=== PATIENT | male | born 1930 | race Caucasian/White ===

== ENCOUNTER 2017-03-18 16:56 | Inpatient (IN) | payer MEDICARE, MEDICAID ==
[~2017-03-18] VITALS: Ht 162.6 cm; Wt 78.7 kg
[~2017-03-18 16:56] MED LIST: AMIO200T2 PO; AMLO5TAB4 PO; ASPI-991 PO; ATOR40TA PO; CARV25TA2 PO; FURO-144 PO
--- NOTE | 2017-03-18 17:11 | NUR ---
IV ACCESS STARTED. BLOOD DRAWN. AT BS FOR EVAL. PT CAME IN WITH C/O SOB AND CHEST PAIN. FAMILY MEMBER AT BS FOR INFO. VSS. SAFETY AND COMFORT MEASURES PROVIDED. WILL MONITOR.
[2017-03-18 17:24] LABS: CALCIUM, SERUM 8.6 mg/dL (8.5-10.1); CARBON DIOXIDE 30 mmol/L (21-32); CHLORIDE 110 mmol/L (98-107); CREATININE 1.9 mg/dL (0.6-1.3); GLUCOSE 126 mg/dL (74-106); POTASSIUM 4.6 mmol/L (3.5-5.1); SODIUM SERUM 144 mmol/L (136-145); UREA NITROGEN, BLOOD 25 mg/dL (7-18)
[2017-03-18 17:26] LABS: BASOPHILS % (AUTO) 0.5 % (0.0-2.0); EOSINOPHILS # (AUTO) 0.1 /CMM (0.0-0.7); EOSINOPHILS % (AUTO) 1.2 % (0.0-6.0); HEMATOCRIT 42 % (39-51); HEMOGLOBIN 13.8 g/dL (13.5-17.5); INR 0.93 (0.87-1.13); LYMPHOCYTES # (AUTO) 2.9 /CMM (0.8-4.8); LYMPHOCYTES % (AUTO) 33.4 % (20.0-44.0); MEAN CORPUSCULAR HEMOGLOBIN 31 PG (26.0-33.0); MEAN CORPUSCULAR HGB CONC 33 g/dl (31.0-36.0); MEAN CORPUSCULAR VOLUME 96 fL (80-96); MONOCYTES # (AUTO) 0.8 /CMM (0.1-1.30); NEUTROPHILS # (AUTO) 4.8 /CMM (1.8-8.9); NEUTROPHILS % (AUTO) 55.9 % (43.0-81.0); PLATELET COUNT (AUTO) 185 /CMM (150-450); PROTHROMBIN TIME 9.7 SECS (9.5-12.7); RDW COEFFICIENT OF VARIATION 14.6 (11.5-15.0); RED BLOOD CELL COUNT(AUTO) 4.43 MIL/uL (4.5-6.0); WHITE BLOOD COUNT (AUTO) 8.6 K/uL (4.3-11.0)
[2017-03-18 17:40] LABS: TROPONIN I 0.028 ng/mL (0.00-0.056)
[2017-03-18 17:41] LABS: ALANINE AMINOTRANSFERASE 50 U/L (12-78); ALBUMIN 3.6 g/dL (3.4-5.0); ALKALINE PHOSPHATASE 102 U/L (46-116); ASPARTATE AMINOTRANSFERASE 27 U/L (15-37); B-TYPE NATRIURETIC PEPTIDE 2292 PG/ML (0-125); BILIRUBIN,DIRECT 0.1 mg/dL (0.0-0.2); BILIRUBIN,TOTAL 0.5 mg/dL (0.2-1.0); TOTAL PROTEIN, SERUM 7.9 g/dL (6.4-8.2)
[2017-03-18] MEDS ORDERED: FUROSEMIDE 40 MG/4 ML VIAL ONE (18:27)
[2017-03-18] MEDS ORDERED: ASPIRIN 81 MG TAB.CHEW ONE (18:27)
[2017-03-18] MEDS ORDERED: NITROGLYCERIN PACKET 1 GM PACKET ONE (18:27)
[2017-03-18] MEDS ORDERED: ASPIRIN 81 MG TAB.CHEW PO ONE (18:30)
[2017-03-18] MEDS ORDERED: NITROGLYCERIN PACKET 1 GM PACKET TOP ONE (18:30)
[2017-03-18] MEDS ORDERED: FUROSEMIDE 40 MG/4 ML VIAL IV ONE (18:30)
[2017-03-18] MEDS ORDERED: RIVA10TA PO (18:35)
--- NOTE | 2017-03-18 18:38 | NUR ---
FOOD TRAY CALLED PER PT REQUEST. PER MD PT IS OKAY TO EAT CARDIAC DIET FOOD.
--- NOTE | 2017-03-18 18:38 | NUR ---
PT MEDICATED ORDERED.
--- NOTE | 2017-03-18 18:46 | NUR ---
REPORT GIVEN TO CARMELA RAY FOR TELE ROOM [phone]
[2017-03-18] MEDS ORDERED: ACETAMINOPHEN 325 MG TABLET PO PRN (19:30)
[2017-03-18] MEDS ORDERED: hydrALAZINE HCL 25 MG TABLET PO PRN (19:30)
[2017-03-18] MEDS ORDERED: ONDANSETRON HCL/PF 4 MG/2 ML VIAL IVP PRN (19:30)
[2017-03-18] MEDS ORDERED: HYDROCODONE/APAP 5/325MG 1 EACH TABLET PO PRN (19:30)
[2017-03-18] MEDS ORDERED: ZOLPIDEM TARTRATE 5 MG TABLET PO PRN (19:30)
[2017-03-18] MEDS ORDERED: MAGNESIUM HYDROXIDE 30 ML UDC PO PRN (19:30)
[2017-03-18] MEDS ORDERED: Z GUARD REMEDY 2 OZ OINT TP PRN (19:30)
[2017-03-18] MEDS ORDERED: MAG HYDROX/AL HYDROX/SIMETH 30 ML UDC PO PRN (19:30)
[2017-03-18] MEDS ORDERED: MORPHINE SULFATE INJ 2 MG/ML DISP.SYRIN IV PRN (19:30)
--- NOTE | 2017-03-18 19:30 | NUR ---
TELE SALES AND SUPPORT CENTER AGENT INITIAL NOTES SEEN PT IN HIS ROOM AWAKE AND ALERT EATING HIS DINNER FOOD WITH HIS AT THE BEDSIDE. PT HAITIAN SPEAKING AND UNDERSTOOD CITIZEN OF [place]OO. DENIES ANY PAIN OR ANY DISCOMFORT NOTED. SKIN WARM AND DRY TO TOUCH NO SOB NOTED AT THIS TIME. APPLIED TELE MONITOR AND EXPLAINED WHAT THE PURPOSE OF IT AND PT UNDERSTOOD WELL . VITAL SIGNS FF BP 143/74, PULSE 81,RESP 20, TEMP 97.9 AND O2 SAT 97% IN ROOM AIR. KEPT HIM WARM AND COMFORTABLE AT ALL TIMES. ORIENTED HOW TO USE THE CALL LIGHT SYSTEM AND ENCOURAGE HIM TO USE IF HE NEEDS SOME HELP OR ASSISTANCE. TELE V-PACING HEART RATE 70 PER MONITOR. ASSESSMENT DONE AND RECORDED. WILL CONTINUE TO MONITOR. PLACE CALL LIGHT AT REACH.
[2017-03-18 19:45] VITALS: BP 143/74
[2017-03-18 20:00] VITALS: BP 143/74
[2017-03-18] MEDS: CARVEDILOL 12.5 MG TABLET PO SCH (20:24)
[2017-03-19] VITALS: BP 126/68
--- NOTE | 2017-03-19 | NUR ---
AUTOMOBILE UPHOLSTERER NOTES PT SLEEPING AT THIS TIME WITHOUT ANY SIGNS OF DISCOMFORT OR ANY ACUTE DISTRESS NOTED. TELE V-PACING . VITAL SIGNS WITHIN NORMAL LIMIT. KEPT HIM WARM AND COMFORTABLE AT ALL TIMES. WILL CONTINUE TO MONITOR. PLACE CALL LIGHT AT REACH.
[2017-03-19 04:00] VITALS: BP 137/76
--- NOTE | 2017-03-19 07:10 | NUR ---
TELE CLOSING NOTES PT REMAINS RESTING IN THE CHAIR WITHOUT ANY ACUTE DISTRESS NOTED. STABLE MYCHAL THE NIGHT AND ALL DUE MEDS GIVEN AND ALL NEEDS MET. ATE WELL , NO ASPIRATION NOTED. TELE V-PACING PER MONITOR. ENDORSE TO AM NURSE FOR CONTINUITY OF CARE. PLACE CALL LIGHT AT REACH.
--- NOTE | 2017-03-19 07:15 | NUR ---
PAPER SALES MANAGER OPENING NOTES RECEIVED PT FROM NIGHTSHIFT NURSE SITTING IN HIS CHAIR IN STABLE CONDITION. PT IS A.O X3. NO SOB OR SIGNS OF DISTRESS NOTED. BREATHING IS EVEN AND UNLABORED. PT DENIES ANY CHEST PAIN AT THIS TIME. HE IS V-PACING ON THE TELE MONITOR WITH A HR OF 70. IV PRESENT ON RIGHT AC 18G HL. IV IS PATENT AND INTACT. NO REDNESS OR SIGNS OF INFILTRATION NOTED. BED IN LOW LOCKED POSITION, SIDE RAILS UP X2, CALL LIGHT WITHIN REACH. WILL CONTINUE TO MONITOR.
[2017-03-19] MEDS: CARVEDILOL 12.5 MG TABLET PO SCH ×2 (08:28→18:32)
[2017-03-19] MEDS: ASPIRIN EC 81 MG TABLET.DR PO SCH (08:28)
[2017-03-19] MEDS: ATORVASTATIN 40 MG TABLET PO SCH (08:29)
[2017-03-19] MEDS: AMLODIPINE BESYLATE 5 MG TABLET PO SCH (08:29)
[2017-03-19] MEDS: AMIODARONE HCL 200 MG TABLET PO SCH (08:29)
[2017-03-19] MEDS: RIVAROXABAN 10 MG TABLET PO SCH (08:33)
[2017-03-19 08:37] LABS: BASOPHILS % (AUTO) 0.4 % (0.0-2.0); EOSINOPHILS # (AUTO) 0.1 /CMM (0.0-0.7); HEMATOCRIT 42 % (39-51); LYMPHOCYTES # (AUTO) 2.3 /CMM (0.8-4.8); LYMPHOCYTES % (AUTO) 29.9 % (20.0-44.0); MEAN CORPUSCULAR HEMOGLOBIN 32 PG (26.0-33.0); MEAN CORPUSCULAR HGB CONC 34 g/dl (31.0-36.0); MEAN CORPUSCULAR VOLUME 95 fL (80-96); MONOCYTES # (AUTO) 0.8 /CMM (0.1-1.30); MONOCYTES % (AUTO) 10.8 % (2.0-12.0); NEUTROPHILS # (AUTO) 4.3 /CMM (1.8-8.9); NEUTROPHILS % (AUTO) 56.9 % (43.0-81.0); PLATELET COUNT (AUTO) 182 /CMM (150-450); RDW COEFFICIENT OF VARIATION 14.6 (11.5-15.0); RED BLOOD CELL COUNT(AUTO) 4.39 MIL/uL (4.5-6.0); WHITE BLOOD COUNT (AUTO) 7.5 K/uL (4.3-11.0)
[2017-03-19] MEDS: NICOTINE PATCH (21MG) 21 MG PATCH.TD24 TD SCH (08:38)
[2017-03-19 08:56] LABS: CHOLESTEROL 230 mg/dL (<200); HDL CHOLESTEROL 50 mg/dL (40-60); LDL 152 mg/dL (0-99); TRIGLYCERIDES 162 mg/dL (30-150)
[2017-03-19 09:28] LABS: CARBON DIOXIDE 30 mmol/L (21-32); CHLORIDE 106 mmol/L (98-107); CREATININE 2.2 mg/dL (0.6-1.3); GLUCOSE 126 mg/dL (74-106); MAGNESIUM 1.8 mg/dL (1.8-2.4); PHOSPHORUS 3.7 mg/dL (2.5-4.9); POTASSIUM 4.2 mmol/L (3.5-5.1); SODIUM SERUM 145 mmol/L (136-145); UREA NITROGEN, BLOOD 30 mg/dL (7-18)
[2017-03-19 16:00] VITALS: BP 129/64
--- NOTE | 2017-03-19 18:45 | NUR ---
Met with patient, his primary dialect is Belizean but understand and speaks some Czech. Stated he lives locally with his family. He is ambulatory and independent with adl's. Has no DME or homehealth reported. Patient plan to return home , family will provide ride to home. Addendum: 03/19/17 at 2219 by MARIO DIANA RN Amended: Links added.
--- NOTE | 2017-03-19 18:59 | NUR ---
MS RN CLOSING NOTES PT REMAINS IN STABLE CONDITION. DENIES ANY CHEST PAIN AT THIS TIME. VITALS STABLE THROUGHOUT SHIFT. ALL NEEDS MET AND ORDERS CARRIED OUT ACCORDINGLY. ALL SAFETY MEASURES IN PLACE. WILL ENDORSE TO NIGHTSHIFT NURSE FOR DAVID
--- NOTE | 2017-03-19 19:30 | NUR ---
TELE/RN RECEIVE PATIENT AWAKE, ALERT, ORIENTED, WALKING IN THE HALLWAY, NO C/O PAIN, NO DISTRSS NOTED, WILL MONITOR.
[2017-03-19 20:00] VITALS: BP 122/68
[2017-03-20] VITALS: BP 125/70
--- NOTE | 2017-03-20 | NUR ---
MS/RN PATIENT IS SLEEPING, AROUSABLE, APPEAR COMFORTABLE, NO SIGNS OF DISTRESS NOTED, CALL LIGHT IN REACH. WILL CONTINUE TO MONITOR.
[2017-03-20 04:00] VITALS: BP 112/68
--- NOTE | 2017-03-20 05:00 | NUR ---
MS/RN PER LIBRARY CUSTOMER SERVICE CLERK, PATIENT REFUSED TO WEIGH.
--- NOTE | 2017-03-20 06:47 | NUR ---
MS/RN SITTING IN CHAIR APPEAR SLEEPING, APPEAR COMFORTABLE, NO DISTRESS NOTED, ALL NEEDS ATTENDED AT THIS TIME. WILL CONTINUE TO MONITOR.
--- NOTE | 2017-03-20 07:18 | NUR ---
MS RN OPENING NOTES RECEIVED PT FROM NIGHTSHIFT NURSE SITTING IN HIS CHAIR IN STABLE CONDITION. PT IS A/O X3. NO SOB OR SIGNS OF DISTRESS NOTED. BREATHING IS EVEN AND UNLABORED. PT DENIES ANY CHEST PAIN AT THIS TIME.IV PRESENT ON RIGHT AC 18G HL. IV IS PATENT AND INTACT. NO REDNESS OR SIGNS OF INFILTRATION NOTED. BED IN LOW LOCKED POSITION, SIDE RAILS UP X2, CALL LIGHT WITHIN REACH. WILL CONTINUE TO MONITOR.
--- NOTE | 2017-03-20 07:19 | NUR ---
MS RN NOTES PT REFUSED HIS DAILY WEIGHT PER NIGHTSHIFT NURSE. WILL REATTEMPT AT A LATER TIME
[2017-03-20 07:31] LABS: BASOPHILS % (AUTO) 0.6 % (0.0-2.0); EOSINOPHILS # (AUTO) 0.1 /CMM (0.0-0.7); EOSINOPHILS % (AUTO) 1.9 % (0.0-6.0); HEMATOCRIT 42 % (39-51); HEMOGLOBIN 14.1 g/dL (13.5-17.5); LYMPHOCYTES # (AUTO) 1.9 /CMM (0.8-4.8); LYMPHOCYTES % (AUTO) 24.2 % (20.0-44.0); MEAN CORPUSCULAR HEMOGLOBIN 32 PG (26.0-33.0); MEAN CORPUSCULAR HGB CONC 34 g/dl (31.0-36.0); MEAN CORPUSCULAR VOLUME 94 fL (80-96); MONOCYTES # (AUTO) 0.7 /CMM (0.1-1.30); MONOCYTES % (AUTO) 8.8 % (2.0-12.0); NEUTROPHILS % (AUTO) 64.5 % (43.0-81.0); PLATELET COUNT (AUTO) 165 /CMM (150-450); RDW COEFFICIENT OF VARIATION 14.5 (11.5-15.0); RED BLOOD CELL COUNT(AUTO) 4.42 MIL/uL (4.5-6.0); WHITE BLOOD COUNT (AUTO) 7.7 K/uL (4.3-11.0)
[2017-03-20 07:46] LABS: CALCIUM, SERUM 8.9 mg/dL (8.5-10.1); CARBON DIOXIDE 26 mmol/L (21-32); CHLORIDE 105 mmol/L (98-107); CREATININE 2.1 mg/dL (0.6-1.3); GLUCOSE 115 mg/dL (74-106); MAGNESIUM 2.1 mg/dL (1.8-2.4); PHOSPHORUS 4.3 mg/dL (2.5-4.9); POTASSIUM 4.1 mmol/L (3.5-5.1); SODIUM SERUM 140 mmol/L (136-145); UREA NITROGEN, BLOOD 41 mg/dL (7-18)
[2017-03-20 08:00] VITALS: BP_SYST 125; BP_SYST 130; BP_DIAS 65; BP_DIAS 73
[2017-03-20 08:28] VITALS: BP 130/65
[2017-03-20] MEDS: ASPIRIN EC 81 MG TABLET.DR PO SCH (08:28)
[2017-03-20] MEDS: AMLODIPINE BESYLATE 5 MG TABLET PO SCH (08:28)
[2017-03-20] MEDS: AMIODARONE HCL 200 MG TABLET PO SCH (08:28)
[2017-03-20] MEDS: ATORVASTATIN 40 MG TABLET PO SCH (08:28)
[2017-03-20] MEDS: CARVEDILOL 12.5 MG TABLET PO SCH (08:28)
[2017-03-20] MEDS: NICOTINE PATCH (21MG) 21 MG PATCH.TD24 TD SCH (08:28)
[2017-03-20] MEDS: RIVAROXABAN 10 MG TABLET PO SCH (08:31)
[2017-03-20 09:13] VITALS: BP 130/65
--- NOTE | 2017-03-20 14:46 | NUR ---
MS PHYSIOTHERAPY ASSISTANT NOTES PT WAS DISCHARGED FROM UNIT IN STABLE CONDITION. ALL NEEDS WERE MET DURING SHIFT AND ORDERS CARRIED OUT ACCORDINGLY. ALL DISCHARGE INSTRUCTIONS DISCUSSED WITH BOTH THE PATIENT AND HIS DAUGHTER JERRY. BOTH VERBALIZED FULL UNDERSTANDING OF DISCHARGE INSTRUCTIONS. PT LEFT WITH ALL BELONGINGS. ALL DISCHARGE PAPERWORK SIGNED BY PT. PT WAS ESCORTED BY MYSELF AND LEFT THE FACILITY SAFELY VIA PRIVATE VEHICLE DRIVEN BY HIS DAUGHTER.
== END 2017-03-20 14:45 | disposition home health service (06) | DRG 291 ==
LOC: ER 16:58 → TELE 19:02 → MED 03-20 03:34
PROVIDERS: ADMIT Internal Medicine; ATTEND Internal Medicine
DX: I13.0 Hypertensive heart and chronic kidney disease with heart failure and stage 1 through stage 4 chronic kidney disease, or unspecified chronic kidney disease (principal); I50.43 Acute on chronic combined systolic (congestive) and diastolic (congestive) heart failure; N17.9 Acute kidney failure, unspecified; I48.0 Paroxysmal atrial fibrillation; I35.0 Nonrheumatic aortic (valve) stenosis; J44.9 Chronic obstructive pulmonary disease, unspecified; I25.10 Atherosclerotic heart disease of native coronary artery without angina pectoris; N18.9 Chronic kidney disease, unspecified; E78.5 Hyperlipidemia, unspecified; F17.210 Nicotine dependence, cigarettes, uncomplicated; K21.9 Gastro-esophageal reflux disease without esophagitis; Z79.01 Long term (current) use of anticoagulants; Z91.19 Patient's noncompliance with other medical treatment and regimen; Z95.1 Presence of aortocoronary bypass graft; Z95.810 Presence of automatic (implantable) cardiac defibrillator
CPT/HCPCS: 36415; 71010-TC; 80048-TC; 80061-TC; 80076-TC; 83735-TC; 83880; 84100-TC; 84484-TC; 85025-TC; 85730-TC; 87081-TC; 93307-TC; A4606; J1940; Z7610

== ENCOUNTER 2017-06-09 05:09 | Inpatient (IN) | payer MEDICARE, MEDICAID ==
[~2017-06-09] VITALS: Ht 172.7 cm; Wt 78.5 kg
[2017-06-09] VITALS (26 sets, daily range): BP systolic 90–174; BP diastolic 44–91
[~2017-06-09 05:09] MED LIST changes: +ASPI-1152 PO; -ASPI-991 PO; +RIVA10TA PO
--- NOTE | 2017-06-09 05:11 | NUR ---
PT BRIB LAFD FROM HOME, C/O SOB ON CPAP FROM FIELD, IV 20G TO L AC FROM FIELD PATENT, PT A/O X 3, BREATHING TACHYPNIC 30, SAT 100% CONVERTED TO BI-PAP, BP 124/91, HR TACHICARDIC 101 PACED, SKIN WARM/DRY/INTACT,
[2017-06-09] MEDS ORDERED: NITROGLYCERIN PACKET 1 GM PACKET ONE (05:28)
[2017-06-09] MEDS ORDERED: FUROSEMIDE 40 MG/4 ML VIAL ONE (05:28)
[2017-06-09] MEDS ORDERED: ENALAPRILAT DIHYD. (2.5MG/ML) 1.25 MG/ML VIAL IV ONE ×2 (05:28→05:30)
[2017-06-09] MEDS ORDERED: FUROSEMIDE 40 MG/4 ML VIAL IV ONE (05:30)
[2017-06-09] MEDS ORDERED: ALBUTEROL FS 2.5 MG/3 ML VIAL.NEB NEB ONE (05:30)
[2017-06-09] MEDS ORDERED: NITROGLYCERIN PACKET 1 GM PACKET TD ONE (05:30)
--- NOTE | 2017-06-09 05:34 | NUR ---
PT REC'D ON CPAP MASK 15LPM. SOB AND RESP DISTRESS NOTED. PT PLACED ON BIPAP PER DR STAPLETON REQUEST. VENT PLUGGED INTO RED OUTLET, AMBU BAG BEDSIDE. ALARMS ARE SET AND AUDIBLE PER POLICY. WILL CONTINUE TO MONITOR. Addendum: 06/09/17 at 0535 by MALLORY MILNER RT Amended: Links added.
[2017-06-09 05:41] LABS: BASOPHILS # (AUTO) 0.1 /CMM (0.0-0.2); BASOPHILS % (AUTO) 1.1 % (0.0-2.0); EOSINOPHILS % (AUTO) 0.3 % (0.0-6.0); HEMATOCRIT 42 % (39-51); HEMOGLOBIN 14.6 g/dL (13.5-17.5); LYMPHOCYTES # (AUTO) 2.5 /CMM (0.8-4.8); LYMPHOCYTES % (AUTO) 19.4 % (20.0-44.0); MEAN CORPUSCULAR HEMOGLOBIN 33 PG (26.0-33.0); MEAN CORPUSCULAR HGB CONC 35 g/dl (31.0-36.0); MEAN CORPUSCULAR VOLUME 94 fL (80-96); MONOCYTES # (AUTO) 1.1 /CMM (0.1-1.30); MONOCYTES % (AUTO) 8.3 % (2.0-12.0); NEUTROPHILS # (AUTO) 9.1 /CMM (1.8-8.9); NEUTROPHILS % (AUTO) 70.9 % (43.0-81.0); PLATELET COUNT (AUTO) 153 /CMM (150-450); RDW COEFFICIENT OF VARIATION 13.8 (11.5-15.0); RED BLOOD CELL COUNT(AUTO) 4.48 MIL/uL (4.5-6.0); WHITE BLOOD COUNT (AUTO) 12.8 K/uL (4.3-11.0)
[2017-06-09 05:44] LABS: CALCIUM, SERUM 9.2 mg/dL (8.5-10.1); CARBON DIOXIDE 25 mmol/L (21-32); CHLORIDE 106 mmol/L (98-107); CREATININE 2.3 mg/dL (0.6-1.3); GLUCOSE 205 mg/dL (74-106); POTASSIUM 4.3 mmol/L (3.5-5.1); SODIUM SERUM 144 mmol/L (136-145); UREA NITROGEN, BLOOD 27 mg/dL (7-18)
[2017-06-09] MEDS ORDERED: ALBUTEROL FS 2.5 MG/3 ML VIAL.NEB ONE (05:49)
[2017-06-09 05:52] LABS: TROPONIN I 0.035 ng/mL (0.00-0.056)
[2017-06-09 05:56] LABS: ALANINE AMINOTRANSFERASE 27 U/L (12-78); ALBUMIN 3.9 g/dL (3.4-5.0); ALKALINE PHOSPHATASE 123 U/L (46-116); ASPARTATE AMINOTRANSFERASE 27 U/L (15-37); B-TYPE NATRIURETIC PEPTIDE 4455 PG/ML (0-125); BILIRUBIN,DIRECT 0.2 mg/dL (0.0-0.2); BILIRUBIN,TOTAL 1.3 mg/dL (0.2-1.0); TOTAL PROTEIN, SERUM 8.8 g/dL (6.4-8.2)
--- NOTE | 2017-06-09 06:00 | NUR ---
RT BEDSIDE FOR TX AT THIS TIME.
[2017-06-09 06:04] LABS: ABG BASE EXCESS -0.9 mmol/L; ABG OXYGEN SATURATION 97.2 % (92.0-98.5); ABG PCO2 36.5 mmHg (35.0-45.0); ABG PH 7.421 (7.350-7.450); ABG PO2 97.5 mmHg (75.0-100.0); AaDO2 145.7 mmHg; COHb 1.3 % (0.5-1.5); MetHb 0.4 % (0.0-1.5); O2Hb 95.5 % (94.0-97.0); SITE, ABG Right Radial; VENT MODE, BG Bipap 15/5 40% BR 14
--- NOTE | 2017-06-09 07:11 | NUR ---
REPORT TO GISELA RAY: PT SITTING IN BED, BI-PAP IN PLACE, NO C/O PAIN, PT UPDATED ON PLAN OF CARE
--- NOTE | 2017-06-09 07:15 | NUR ---
RECEIVED REPORT FOR DAVID, PATIENT ON BIPAP, TOLERATING WELL. WILL CONTINUE TO MONITOR.
--- NOTE | 2017-06-09 07:25 | NUR ---
RT COMPLETED ABG, WNL. RT RECOMMENDING TRIAL OFF BIPAP. BIPAP REMOVED, PLACED ON SIMPLE MASK, 10L. TOLERATING WELL. WILL CONTINUE TO MONITOR.
[2017-06-09] MEDS ORDERED: ZOLPIDEM TARTRATE 5 MG TABLET PO PRN (07:30)
[2017-06-09] MEDS ORDERED: HYDROCODONE/APAP 5/325MG 1 EACH TABLET PO PRN (07:30)
[2017-06-09] MEDS ORDERED: ONDANSETRON HCL/PF 4 MG/2 ML VIAL IVP PRN (07:30)
[2017-06-09] MEDS ORDERED: MAGNESIUM HYDROXIDE 30 ML UDC PO PRN (07:30)
[2017-06-09] MEDS ORDERED: DEXTROSE 50%-WATER 50 ML DISP.SYRIN IV PRN (07:30)
[2017-06-09] MEDS ORDERED: Z GUARD REMEDY 2 OZ OINT TP PRN (07:30)
--- NOTE | 2017-06-09 08:12 | NUR ---
PATIENT MORE SHORT OF BREATH AND TACHYCARDIC, NOT TOLERATING SIMPLE MASK. PLACED BACK ONTO BIPAP. WILL CONTINUE TO MONITOR.
--- NOTE | 2017-06-09 10:03 | NUR ---
REPORT GIVEN TO PETE RAY FOR DAVID UPON ADMISSION.
--- NOTE | 2017-06-09 10:25 | NUR ---
PATIENT TRANSPORTED TO [facility] VIA ACLS PROTOCOL. RNPETE TO PROVIDE DAVID.
[2017-06-09] MEDS: CARVEDILOL 12.5 MG TABLET PO SCH ×3 (10:30→21:00)
[2017-06-09] MEDS: ASPIRIN EC 81 MG TABLET.DR PO SCH ×2 (10:30→10:52)
[2017-06-09] MEDS: AMIODARONE HCL 200 MG TABLET PO SCH ×2 (10:30→10:52)
[2017-06-09] MEDS: ATORVASTATIN 40 MG TABLET PO SCH ×2 (10:30→10:52)
[2017-06-09] MEDS: AMLODIPINE BESYLATE 5 MG TABLET PO SCH ×2 (10:30→10:53)
--- NOTE | 2017-06-09 10:30 | NUR ---
RN INITIAL NOTES RECEIVED PT AWAKE, A/O X 1 WITH CONFUSION. PLACED COMFORTABLY TO BED AND CONNECTED TO MONITOR. ON BIPAP. PT AGITATED, TRYING TO GET OUT OF BED AND HITTING/KICKING STAFF. PT FALL RISK. ORDERED BILATERAL WRIST RESTRAINTS. PT TACHYPNEIC, RR 40S AND TACHYCARDIC, HR 130S. IV LINES IN PLACE. FC INSERTED. BODY ASSESSMENT DONE, PICTURES TAKEN AND PLACED IN THE CHART. DR. LY AWARE OF ADMISSION. AWAITING FOR ADMISSION ORDERS. WILL CLOSELY MONITOR.
--- NOTE | 2017-06-09 11:33 | NUR ---
RN NOTES DR. LY IN THE UNIT. AWARE OF PT'S ADMISSION AND AWARE OF CURRENT LAB VALUES AND CXR RESULT. PT ON BIPAP. ON BILATERAL WRSIT RESTRAINTS. PT VERY AGITATED. TRYING TO GET OUT OF BED, HITTING/KICKING STAFF. ORDERED ATICAN 0.5MG IVP X 1. NOTED AND CARRIED OUT. DAUGHTER AT BEDSIDE AWARE.
[2017-06-09] MEDS: BLOOD SUGAR DIAGNOSTIC 1 EACH STRIP IN SCH ×2 (11:45→17:26)
[2017-06-09] MEDS ORDERED: LORAZEPAM INJ 2 MG/ML VIAL IV ONE (12:00)
[2017-06-09] MEDS ORDERED: Z GUARD REMEDY 4 OZ OINT TP PRN (13:00)
--- NOTE | 2017-06-09 13:00 | NUR ---
RN NOTES SEEN AND EXAMINED BY DR. PATRICK. AWARE OF CURRENT LAB VALUES AND CXR RESULT. AWAITING FOR ORDERS.
[2017-06-09] MEDS: FUROSEMIDE 40 MG/4 ML VIAL IV SCH ×3 (14:02→23:02)
--- NOTE | 2017-06-09 14:30 | NUR ---
RN NOTES SEEN AND EXAMINED BY DR. BO. PT ON BIPAP. AWARE OF LATEST ABG RESULT. NO RESPIRATORY DISTRESS NOTED AT THIS TIME. NO SOB NOTED. WILL CONTINUE TO MONITOR.
[2017-06-09 14:42] LABS: ABG BASE EXCESS 1.4 mmol/L; ABG OXYGEN SATURATION 97.7 % (92.0-98.5); ABG PCO2 38.6 mmHg (35.0-45.0); ABG PH 7.438 (7.350-7.450); ABG PO2 117.2 mmHg (75.0-100.0); AaDO2 195.9 mmHg; COHb 0.1 % (0.5-1.5); MetHb 0.4 % (0.0-1.5); O2Hb 97.2 % (94.0-97.0); PEEP,BG 5 cm H2O; SITE, ABG Right Radial; VENT MODE, BG ST 15/5 RR 14 50%
[2017-06-09] MEDS: IPRATROPIUM NEB FS 0.5 MG/2.5 ML AMPUL.NEB NEB SCH ×2 (14:49→19:09)
[2017-06-09] MEDS: RIVAROXABAN 15 MG TABLET PO SCH (16:49)
--- NOTE | 2017-06-09 16:50 | NUR ---
RN NOTES PT UNABLE TO SWALLOW. RISK FOR ASPIRATION. PT ON NPO. MED NOT GIVEN. DR. LY NOTIFIED.
[2017-06-09] MEDS: INSULIN REGULAR, HUMAN 100 UNIT/ML 3 ML VIAL SQ PRN (17:28)
--- NOTE | 2017-06-09 18:06 | NUR ---
RT NOTE PT REMAINS ON BIPAP. SETTINGS PRESCRIBED. ALARMS SET PER PROTOCOL AND AUDIBLE. BIPAP PLUGGED IN TO RED OUTLET. NO DISTRESS NOTED WILL CONTINUE TO MONITOR. Addendum: 06/09/17 at 1807 by YOLI PAGE RT Amended: Links added.
--- NOTE | 2017-06-09 18:29 | NUR ---
RN CLOSING NOTES PT ON BIPAP. NO RESPIRATORY DISTRESS NOTED. NO SOB NOTED. HOB KEPT ELEVATED. NO SIGNS OF PAIN NOTED. IV LINES IN PLACE. FC IN PLACE. ADEQUATE OUTPUT NOTED. NO HEMATURIA NOTED. BLE ELEVATED. KEPT CLEAN AND DRY. REPOSITIONED Q2. WILL ENDORSE FOR CONTINUITY OF CARE.
--- NOTE | 2017-06-09 19:25 | NUR ---
RN NOTES RECEIVED PT ASLEEP RESTING WELL ON BIPAP 14/5 FIO2 40% SATING 97% AOX1. NO RESP DISTRESS. TELE MONITOR REVEALS V-PACING HR 74 PT IS WARMTH TO TOUCH, AFEBRILE. WITH IV SITE ON RAC G 18 AND LAC G18 INTACT AND PATENT. WITH GOOD CATH DRAINED WITH YELLOW CLEAR COLOR URINE OUTPUT. KEPT PT CLEAN AND DRY. WILL CLOSELY MONITOR.
--- NOTE | 2017-06-09 21:25 | NUR ---
RN NOTES CALLED AND SPOKE WITH DR. LOONEY INFORMED THAT BP 101/49 MMHG HR 76 AND PT IS DUE FOR COREG 25 MG AND LASIX 40 MG PER MD TO HOLD LASIX AND COREG FOR NOW. ACKNOWLEDGE ORDER.
--- NOTE | 2017-06-09 22:55 | NUR ---
RN NOTES PT AWAKE AND TRIED TO WEAN OFF FROM BIPAP, RT PLACED PT TO MASK @ 10LPM AFTER 10 MINUTES NOTED PT STILL SOUNDS CONGESTED AND STARTED TO GET RESTLESS. CALLED AND SPOKE TO DR. LOONEY WITH ORDER TO GIVE BACK THE LASIX 40 MG IVP THAT WAS HELD EARLIER NOTED AND ACKNOWLEDGE ORDER.
--- NOTE | 2017-06-09 23:40 | NUR ---
RN NOTES PT IS RESTLESS SATURATION IS DROPPING DOWN TO 85%. RT AT BEDSIDE ABG RENDERED
[2017-06-09 23:54] LABS: MetHb 0.4 % (0.0-1.5); PEEP,BG 5 cm H2O; SITE, ABG Right Radial
[2017-06-10] VITALS (51 sets, daily range): BP systolic 74–177; BP diastolic 45–88
--- NOTE | 2017-06-10 | NUR ---
RN NOTES ABG RESULT REPORTED TO DR. MORALES WITH PH 7.174 PCO2 72.8 PO2 60.2 HCO3 26.2 WITH ORDER TO INTUBATE PATIENT. NOTED AND ACKNOWLEDGE ORDER
[2017-06-10] MEDS ORDERED: PROPOFOL 100 ML ONE ×2 (00:20→06:53)
[2017-06-10] MEDS: PROPOFOL 100 ML IV PRN ×2 (00:24→06:55)
[2017-06-10] MEDS: BLOOD SUGAR DIAGNOSTIC 1 EACH STRIP IN SCH ×4 (00:40→17:32)
--- NOTE | 2017-06-10 00:40 | NUR ---
RN NOTES 0010 AM - ER MD CAME AND ORDER TO GIVE ETOMIDATE 30 MG AND ROCURONIUM 80 MG GIVEN BY CHARGE NURSE. 00:14 AM - INTUBATED PT BY ER MD 7.5 ETT SECURED @ 23 CM AL, PT TOLERATED WELL. 00:20 AM - CXR DONE
[2017-06-10] MEDS: INSULIN REGULAR, HUMAN 100 UNIT/ML 3 ML VIAL SQ PRN ×2 (00:43→05:31)
--- NOTE | 2017-06-10 00:51 | NUR ---
RN NOTES BS 151 MG/DL INSULIN NOT GIVEN DUE TO NPO AT THIS TIME
[2017-06-10] MEDS: IPRATROPIUM NEB FS 0.5 MG/2.5 ML AMPUL.NEB NEB SCH ×4 (00:56→19:52)
[2017-06-10 01:22] LABS: ABG OXYGEN SATURATION 98.8 % (92.0-98.5); ABG PCO2 39.2 mmHg (35.0-45.0); ABG PH 7.334 (7.350-7.450); ABG PO2 214.1 mmHg (75.0-100.0); AaDO2 459.7 mmHg; COHb 0.1 % (0.5-1.5); O2Hb 98.3 % (94.0-97.0); VENT MODE, BG AC 20 500 100% +5
--- NOTE | 2017-06-10 01:43 | NUR ---
PT INTUBATED AT 0014 WITH 7.5 ETT PROPERLY SECURED AT 23 CM AL. B/S EQUAL BILAT. PLACED ON VENT ON NOTED SETTINGS. NO DISTRESS NOTED POST INTUBATION. WILL CONT. TO MONITOR PT AND FOLLOW ORDERS ACCORDINGLY. Addendum: 06/10/17 at 0147 by JAMIE ORNELAS RT Amended: Links added.
[2017-06-10 05:19] LABS: HEMATOCRIT 42 % (39-51); HEMOGLOBIN 14.3 g/dL (13.5-17.5); LYMPHOCYTES # (AUTO) 0.5 /CMM (0.8-4.8); LYMPHOCYTES % (AUTO) 4.2 % (20.0-44.0); MEAN CORPUSCULAR HEMOGLOBIN 33 PG (26.0-33.0); MEAN CORPUSCULAR HGB CONC 34 g/dl (31.0-36.0); MEAN CORPUSCULAR VOLUME 96 fL (80-96); MONOCYTES % (AUTO) 8.7 % (2.0-12.0); NEUTROPHILS # (AUTO) 9.8 /CMM (1.8-8.9); NEUTROPHILS % (AUTO) 87.1 % (43.0-81.0); PLATELET COUNT (AUTO) 129 /CMM (150-450); RDW COEFFICIENT OF VARIATION 14.5 (11.5-15.0); RED BLOOD CELL COUNT(AUTO) 4.39 MIL/uL (4.5-6.0); WHITE BLOOD COUNT (AUTO) 11.2 K/uL (4.3-11.0)
[2017-06-10] MEDS: FUROSEMIDE 40 MG/4 ML VIAL IV SCH (05:24)
[2017-06-10 05:29] LABS: CALCIUM, SERUM 8.6 mg/dL (8.5-10.1); CARBON DIOXIDE 23 mmol/L (21-32); CHLORIDE 106 mmol/L (98-107); CREATININE 3.2 mg/dL (0.6-1.3); GLUCOSE 149 mg/dL (74-106); MAGNESIUM 2.2 mg/dL (1.8-2.4); PHOSPHORUS 5.4 mg/dL (2.5-4.9); POTASSIUM 4.3 mmol/L (3.5-5.1); SODIUM SERUM 144 mmol/L (136-145); UREA NITROGEN, BLOOD 44 mg/dL (7-18)
--- NOTE | 2017-06-10 07:00 | NUR ---
RN NOTES PT STILL SEDATED WITH PROPOFOL @ 15 MCG/KG/MIN. TOLERATED WELL. PT VS STABLE AT THIS TIME. AFEBRILE. KEPT PT CLEAN AND DRY. GRAND DAUGHTER LORIE MADE AWARE REGARDING INTUBATION. KEPT PT CLEAN AND DRY. WILL CONTINUE TO MONITOR.
--- NOTE | 2017-06-10 07:10 | NUR ---
RN INITIAL NOTES PT INTUBATED, TOLERATING VENT. NO RESPIRATORY DISTRESS NOTED. NO SOB NOTED. NO SIGNS OF PAIN NOTED. IV LINES IN PLACE. ON DIPRIVAN AT 15MCG/KG/MIN. WILL TITRATE ACCORDINGLY. FC IN PLACE. NO HEMATURIA NOTED. BLE ELEVATED. PT CLEAN AND DRY. WILL MONITOR.
[2017-06-10] MEDS: ATORVASTATIN 40 MG TABLET PO SCH (08:34)
[2017-06-10] MEDS: CARVEDILOL 12.5 MG TABLET PO SCH ×2 (08:35→21:48)
[2017-06-10] MEDS: ASPIRIN EC 81 MG TABLET.DR PO SCH (08:35)
[2017-06-10] MEDS: AMIODARONE HCL 200 MG TABLET PO SCH (08:36)
[2017-06-10] MEDS: AMLODIPINE BESYLATE 5 MG TABLET PO SCH (08:36)
--- NOTE | 2017-06-10 08:46 | NUR ---
WOUND CARE CONSULT PATIENT SEEN AND SKIN INTEGRITY ASSESSMENT DONE. SEE SANDFILL OPERATOR ASSESSMENT IN PCS FOR TODAY ALONG WITH ALL RECOMMENDATIONS. PATIENT ON ISOFLEX MEGAN SPECIALTY BED, CONTINUE TURNING SCHED Q 2 HOURS AND BILATERAL HEEL FLOATING, CONTINUE USE OF Z GUARD CURRENTLY ORDERED. PATIENT WITH CURRENT JOSE JUAN AT 13, SEDATED ON DIPROVAN, MOVING ALL EXTREMITIES WHEN TOUCHED. CONTINUE ALL PRESSURE ULCER PREVENTION MEASURES PER CURRENT PLAN OF CARE. Addendum: 06/10/17 at 0849 by TOMEKA JACKSON WNDNU Amended: Links added.
[2017-06-10 08:48] LABS: ABG BASE EXCESS -1.5 mmol/L; ABG OXYGEN SATURATION 96.4 % (92.0-98.5); ABG PCO2 33.1 mmHg (35.0-45.0); ABG PH 7.439 (7.350-7.450); ABG PO2 84.7 mmHg (75.0-100.0); AaDO2 162.4 mmHg; COHb 0.4 % (0.5-1.5); MetHb 0.1 % (0.0-1.5); O2Hb 95.9 % (94.0-97.0); SITE, ABG Right Radial; VENT MODE, BG AC 20 500 40 +5
--- NOTE | 2017-06-10 09:30 | NUR ---
RN NOTES SEEN AND EXAMINED BY DR. BO. PT INTUBATED, TOLERATING VENT WELL. CURRENTLY ON SEDATION VACATION. PT TRIES TO OPEN EYES BUT NOT FOLLOWING COMMANDS. AWARE OF CURRENT LAB VALUES AND CXR RESULT. NO ORDER MADE AT THIS TIME. WILL MONITOR.
[2017-06-10] MEDS: PROPOFOL 10MG/ML 50ML 50 ML IV PRN ×2 (12:25→18:51)
[2017-06-10] MEDS ORDERED: ETOMIDATE 2 MG/ML VIAL IV ONE (12:32)
[2017-06-10] MEDS ORDERED: ROCURONIUM BROMIDE 50 MG/5 ML IV ONE (12:32)
[2017-06-10] MEDS ORDERED: FEE EMEERGENCY 1 MIN EA MC ONE (12:32)
[2017-06-10] MEDS: ACETAMINOPHEN 325 MG TABLET PO PRN (12:47)
--- NOTE | 2017-06-10 14:51 | NUR ---
RN NOTES SEEN AND EXAMINED BY DR. LY. AWARE OF CURRENT LAB VALUES: WBC 11.2, FEBRILE. GIVEN TYLENOL. BUN 44, CREA 3.2. AWAITING BLOOD CULTURE RESULT. MD ALSO AWARE OF CXR RESULT. PT INTUBATED, TOLERATING VENT WELL. ON DIPRIVAN AT 5MCG/KG/MIN. MD DISCUSSED PLAN OF CARE WITH FAMILY MEMBERS AT BEDSIDE. WILL CONTINUE TO MONITOR. Addendum: 06/10/17 at 1540 by PETE AGUIRRE RN [id number] DR. LY ALSO AWARE THAT SBP ON LOW 90S, MAP >60. MD STATED LONG MAP IS >60, DO NOT START PT ON ANY PRESSORS. WILL CLOSELY MONITOR.
[2017-06-10] MEDS: methylPREDNISolone SOD SUCC 125 MG/2ML VIAL IV SCH ×2 (15:44→20:57)
[2017-06-10 15:53] LABS: APPEARANCE,URINE CLEAR (CLEAR); BILIRUBIN,URINE NEGATIVE (NEGATIVE); BLOOD, URINE 3+ Ery/uL (NEGATIVE); COLOR,URINE YELLOW (YELLOW); KETONES,URINE NEGATIVE (NEGATIVE); LEUKOCYTE ESTERASE ,URINE NEGATIVE (NEGATIVE); NITRITE, URINE NEGATIVE (NEGATIVE); PH,URINE 5.5 (5.0-8.0); PROTEIN,URINE TRACE mg/dl (NEGATIVE); UGLUCOSE NEGATIVE (NEGATIVE); UROBILINOGEN,URINE 0.2 EU/dL (0.2)
[2017-06-10 16:17] LABS: BACTERIA,URINE None seen /HPF (None Seen); RBC,URINE 21-50 /HPF (0-2); SQUAMOUS EPITHELIAL CELL,UR Rare /HPF (None Seen)
[2017-06-10] MEDS: RIVAROXABAN 15 MG TABLET PO SCH (17:21)
--- NOTE | 2017-06-10 18:42 | NUR ---
RN CLOSING NOTES PT INTUBATED, TOLERATING VENT. NO RESPIRATORY DISTRESS NOTED. NO SOB NOTED. NO SIGNS OF PAIN NOTED. IV LINES IN PLACE. ON DIPRIVAN 5MCG/KG/MIN. TITRATED ACCORDINGLY. FC IN PLACE. NO HEMATURIA NOTED. TX PROVIDED ORDERED. KEPT CLEAN AND DRY. REPOSITIONED Q2. BLE ELEVATED. KEPT PT CLEAN AND DRY. WILL ENDORSE FOR CONTINUITY OF CARE.
--- NOTE | 2017-06-10 19:30 | NUR ---
RN NOTES PT RESTING ON BED INTUBATED ETT7.5/ 25 CM @ LIP CONNECTED TO VENT. SETTING TOLERATED WELL NO RESPIRATORY DISTRESS NOTED. NO ACUTE RESP DISTRESS. NO SIGNS OF PAIN NOTED. IV LINES IN PLACE. RECEIVED WITH IV DIPRIVAN 5MCG/KG/MIN. ON LAC INTACT AND PATENT. FC DRAINED WITH YELLOW CLEAR COLOR URINE. NO HEMATURIA NOTED. NO SEDIMENT. REPOSITIONED COMFORTABLE. KEPT PT CLEAN AND DRY. OFFLOADED EXT WITH PILLOWS. WILL CLOSELY MONITOR.
[2017-06-11] VITALS (36 sets, daily range): BP systolic 90–130; BP diastolic 49–85
[2017-06-11] MEDS: BLOOD SUGAR DIAGNOSTIC 1 EACH STRIP IN SCH ×5 (00:22→23:35)
[2017-06-11] MEDS: INSULIN REGULAR, HUMAN 100 UNIT/ML 3 ML VIAL SQ PRN ×3 (00:25→23:37)
[2017-06-11] MEDS: IPRATROPIUM NEB FS 0.5 MG/2.5 ML AMPUL.NEB NEB SCH ×4 (01:43→19:53)
[2017-06-11] MEDS: methylPREDNISolone SOD SUCC 125 MG/2ML VIAL IV SCH ×3 (05:06→20:19)
[2017-06-11 05:23] LABS: BASOPHILS # (AUTO) 0.1 /CMM (0.0-0.2); BASOPHILS % (AUTO) 0.8 % (0.0-2.0); EOSINOPHILS % (AUTO) 0.1 % (0.0-6.0); HEMATOCRIT 38 % (39-51); HEMOGLOBIN 12.9 g/dL (13.5-17.5); LYMPHOCYTES # (AUTO) 0.7 /CMM (0.8-4.8); MEAN CORPUSCULAR HEMOGLOBIN 32 PG (26.0-33.0); MEAN CORPUSCULAR HGB CONC 34 g/dl (31.0-36.0); MEAN CORPUSCULAR VOLUME 94 fL (80-96); MONOCYTES # (AUTO) 0.3 /CMM (0.1-1.30); MONOCYTES % (AUTO) 3.8 % (2.0-12.0); NEUTROPHILS # (AUTO) 6.5 /CMM (1.8-8.9); NEUTROPHILS % (AUTO) 86.3 % (43.0-81.0); PLATELET COUNT (AUTO) 126 /CMM (150-450); RDW COEFFICIENT OF VARIATION 13.5 (11.5-15.0); RED BLOOD CELL COUNT(AUTO) 4.04 MIL/uL (4.5-6.0); WHITE BLOOD COUNT (AUTO) 7.6 K/uL (4.3-11.0)
[2017-06-11 05:30] LABS: CALCIUM, SERUM 8.7 mg/dL (8.5-10.1); CARBON DIOXIDE 23 mmol/L (21-32); CHLORIDE 107 mmol/L (98-107); GLUCOSE 174 mg/dL (74-106); POTASSIUM 4.3 mmol/L (3.5-5.1); SODIUM SERUM 143 mmol/L (136-145); UREA NITROGEN, BLOOD 79 mg/dL (7-18)
--- NOTE | 2017-06-11 06:05 | NUR ---
RT PT RECEIVED TRACHED NN [facility] VENT WITH NOTED SETTING. VENT PLUGGED IN TO RED OUTLET. ALARMS SET AND AUDIBLE. AMBU BAG AT HOB. NO SOB OR RESP DISTRESS NOTED ON SHIFT. HHN TX GIVEN ORDERED WITH NO ADVERSE REACTIONS. SX SMALL AMOUNT OF THICK YELLOW SECRETIONS PRN Addendum: 06/11/17 at 0605 by VIN REYNAGA RT Amended: Links added.
[2017-06-11] MEDS: PROPOFOL 10MG/ML 50ML 50 ML IV PRN ×3 (06:29→18:37)
--- NOTE | 2017-06-11 06:38 | NUR ---
RN NOTES PT REMAINED STABLE ON ETT WITH VENT SETTING TOLERATED WELL. NO ACUTE RESP DISTRESS SATING AT 97% . TELE MONITOR REVEALS V-PACING HR 78. PT REMAINED CALM WITH PROPOFOL DRIP @ 7 MCG/KG/MIN ON LAC. IV SITE REMAINED INTACT AND PATENT WELL RAC G 18. KEPT PT CLEAN AND DRY AND IN COMFORTABLE POSITION. OFFLOADED EXT WITH PILLOWS. REDUCED PRESSURE TO BONY PROMINENCE AREA. WILL ENDORSE CONTINUITY OF CARE TO AM NURSE.
--- NOTE | 2017-06-11 07:15 | NUR ---
CASINO BANKER- INITIAL NOTE RECEIVED PT INTUBATED & SEDATED. PT ORALLY INTUBATED 7.5, 25 CM @ THE LIP. PT SEDATED ON DIPRIVAN GTT AT 7 MCG/MIN. BEDSIDE MONITOR REVEALS V-PACING. OGT PRESENT & CLAMPED. GOOD CATHETER PRESENT & DRAINING TO GRAVITY. RAC 18G & LAC 18G IVS FLUSHED, PATENT & INTACT. SAFETY MEASURES TAKEN: BED LOCKED AND IN LOW POSITION, SIDE RAILS UP X2 AND BED ALARM ON, WILL CONTINUE TO MONITOR.
--- NOTE | 2017-06-11 07:55 | NUR ---
LOAN PROCESSING SUPERVISOR- DIPRIVAN GTT TURNED OFF FOR WEANING AND PLACED ON SIMV MODE BY RT. PT AWAKE & ABLE TO FOLLOW COMMANDS. 0915- ABGS DONE & RESULTS GIVEN TO DR. BO. PER , PLACE PT BACK ON AC MODE. DIPRIVAN RE-STARTED AT PREVIOUS RATE. PT PLACED ON AC MODE AT PREVIOUS SETTINGS PER RT. WILL CONTINUE TO MONITOR.
[2017-06-11] MEDS: AMLODIPINE BESYLATE 5 MG TABLET PO SCH (08:08)
[2017-06-11] MEDS: ATORVASTATIN 40 MG TABLET PO SCH (08:08)
[2017-06-11] MEDS: CARVEDILOL 12.5 MG TABLET PO SCH ×2 (08:08→20:19)
[2017-06-11] MEDS: ASPIRIN EC 81 MG TABLET.DR PO SCH (08:08)
[2017-06-11 09:08] LABS: ABG BASE EXCESS -3.6 mmol/L; ABG OXYGEN SATURATION 94.3 % (92.0-98.5); ABG PCO2 31.4 mmHg (35.0-45.0); ABG PH 7.418 (7.350-7.450); ABG PO2 75.4 mmHg (75.0-100.0); AaDO2 173.7 mmHg; COHb 0.3 % (0.5-1.5); MetHb 0.3 % (0.0-1.5); O2Hb 93.7 % (94.0-97.0); PEEP,BG 5 cm H2O; SITE, ABG Left Radial; VENT MODE, BG SIMV PS 15
[2017-06-11] MEDS: IV NS 0.9% 1,000 ML IV PRN (11:23)
[2017-06-11] MEDS: RIVAROXABAN 15 MG TABLET PO SCH (17:14)
--- NOTE | 2017-06-11 18:20 | NUR ---
RT END OF THE SHIFT REPORT, PT. 86 Y OLD MALE REMAIN ORALLY INTUBATED, ETT # 7.5 @ 23 CM LIPLINE REMAIN ON [facility]. VENT.WITH NOTED SETTINGS, ALARMS ARE SET AND FUNCTIONAL. EQUAL CHEST RISE NOTED, BILATERALLY RALES SUX'D FOR MINIMAL WHITE SECRETIONS. NO RESPIRATORY DISTRESS NOTED T/O DAY AND PT. REMAIN STABLE. TX'S GIVEN INLINE AND NO ADVERSE REACTION NOTED. NO CHANGES T/O SHIFT VENT PLUGGED INTO RED OUTLET. AMBU BAG AT THE BEDSIDE. CONTINUE FOR MONITOR AND REPORT WILL PASS TO PM SHIFT. Addendum: 06/11/17 at 1821 by SALTY JIMENEZ RT Amended: Links added.
--- NOTE | 2017-06-11 19:30 | NUR ---
RN INITIAL NOTES RECEIVED PATIENT RESTING IN BED, INTUBATED, ETT 7.5/25CM @ LIP, ON MECHANICAL VENTILATION AT PRESCRIBED SETTINGS, TOLERATING WELL, FREE FROM ANY S/S OF RESPIRATORY DISTRESS. PATIENT IS SEDATED ON DIPRIVAN, CURRENTLY @ 15MCG/KG/MIN. IV SITES PATENT AND INTACT, FLUSHED WITH NS, FREE FROM ANY S/S OF INFILTRATION OR PHLEBITIS. NO S/S OF PAIN OR ACUTE DISTRESS NOTED. FC PATENT AND INTACT, REPOSITIONED FOR COMFORT. BED IN LOWEST AND LOCKED POSITION. WILL CONTINUE TO CLOSELY MONITOR
--- NOTE | 2017-06-11 21:30 | NUR ---
RN NOTES - DIPRIVAN GTT DIPRIVAN DRIP TITRATED DOWN PER PROTOCOL, NOW AT 10MCG/KG/MIN. WILL CONTINUE TO CLOSELY MONITOR
--- NOTE | 2017-06-11 23:15 | NUR ---
RN NOTES - DIPRIVAN GTT DIPRIVAN DRIP TITRATED PER PROTOCOL, NOW AT 15MCG/KG/MIN. WILL CONTINUE TO CLOSELY MONITOR
[2017-06-12] VITALS (53 sets, daily range): BP systolic 64–144; BP diastolic 40–78
[2017-06-12] MEDS: PROPOFOL 10MG/ML 50ML 50 ML IV PRN ×3 (00:34→18:35)
[2017-06-12] MEDS: IPRATROPIUM NEB FS 0.5 MG/2.5 ML AMPUL.NEB NEB SCH ×4 (01:57→19:51)
--- NOTE | 2017-06-12 02:00 | NUR ---
RN NOTES - DIPRIVAN GTT DIPRIVAN DRIP TITRATED PER PROTOCOL, NOW AT 10MCG/KG/MIN. WILL CONTINUE TO CLOSELY MONITOR
[2017-06-12] MEDS: methylPREDNISolone SOD SUCC 125 MG/2ML VIAL IV SCH ×3 (04:59→21:10)
[2017-06-12] MEDS: BLOOD SUGAR DIAGNOSTIC 1 EACH STRIP IN SCH ×4 (05:00→23:34)
[2017-06-12] MEDS: IV NS 0.9% 1,000 ML IV PRN (05:17)
[2017-06-12] MEDS: INSULIN REGULAR, HUMAN 100 UNIT/ML 3 ML VIAL SQ PRN ×3 (05:19→23:35)
[2017-06-12 05:20] LABS: BASOPHILS % (AUTO) 0.3 % (0.0-2.0); EOSINOPHILS % (AUTO) 0.2 % (0.0-6.0); HEMATOCRIT 38 % (39-51); HEMOGLOBIN 13.1 g/dL (13.5-17.5); LYMPHOCYTES % (AUTO) 8.2 % (20.0-44.0); MEAN CORPUSCULAR HEMOGLOBIN 32 PG (26.0-33.0); MEAN CORPUSCULAR HGB CONC 35 g/dl (31.0-36.0); MEAN CORPUSCULAR VOLUME 93 fL (80-96); MONOCYTES # (AUTO) 0.8 /CMM (0.1-1.30); NEUTROPHILS # (AUTO) 10.9 /CMM (1.8-8.9); NEUTROPHILS % (AUTO) 85.3 % (43.0-81.0); PLATELET COUNT (AUTO) 128 /CMM (150-450); RDW COEFFICIENT OF VARIATION 13.5 (11.5-15.0); RED BLOOD CELL COUNT(AUTO) 4.05 MIL/uL (4.5-6.0); WHITE BLOOD COUNT (AUTO) 12.7 K/uL (4.3-11.0)
--- NOTE | 2017-06-12 05:40 | NUR ---
RT PT RECEIVED INTUBATE ON [facility] VENT WITH NOTED SETTING. ETT PATENT AND SECURE. VENT PLUGGED IN TO RED OUTLET. ALARMS SET AND AUDIBLE. AMBU BAG AT [facility]. NO SOB OR RESP DISTRESS NOTED ON SHIFT. SX SMALL AMOUNT OF THIN CLEAR SECRETIONS. Addendum: 06/12/17 at 0541 by VIN REYNAGA RT Amended: Links added.
[2017-06-12 05:44] LABS: CALCIUM, SERUM 8.5 mg/dL (8.5-10.1); CARBON DIOXIDE 24 mmol/L (21-32); CHLORIDE 110 mmol/L (98-107); CREATININE 3.6 mg/dL (0.6-1.3); GLUCOSE 179 mg/dL (74-106); SODIUM SERUM 146 mmol/L (136-145)
[2017-06-12 06:04] LABS: UREA NITROGEN, BLOOD 95 mg/dL (7-18)
--- NOTE | 2017-06-12 06:30 | NUR ---
RN CLOSING NOTES PATIENT REMAINS STABLE THROUGHOUT SHIFT, TOLERATING DIPRIVAN DRIP, CURRENTLY @ 5MCG/KG/MIN. WILL ENDORSE THE PATIENT TO THE AM SHIFT NURSE FOR DAVID
--- NOTE | 2017-06-12 07:30 | NUR ---
FIELD PARTY MANAGER NOTER PATIENT BECOME MORE AWAKE AND RESTLESS TRYING TO REMOVE ALL LINES ,DIPRIVAN INCRESED FROM 5 TO 10 MCG\MIN WILL MONITOR CLOSELY
--- NOTE | 2017-06-12 08:00 | NUR ---
RN INITIAL NOTES RECEIVED PATIENT RESTING IN BED, INTUBATED, ETT 7.5/25CM @ LIP, ON MECHANICAL VENTILATION AT PRESCRIBED SETTINGS, TOLERATING WELL, FREE FROM ANY S/S OF RESPIRATORY DISTRESS. PATIENT IS SEDATED ON DIPRIVAN, CURRENTLY @ 10MCG/KG/MIN. IV SITES PATENT AND INTACT, FLUSHED WITH NS, FREE FROM ANY S/S OF INFILTRATION OR PHLEBITIS. NO S/S OF PAIN OR ACUTE DISTRESS NOTED. FC PATENT AND INTACT, REPOSITIONED FOR COMFORT. BED IN LOWEST AND LOCKED POSITION. WILL CONTINUE TO CLOSELY MONITOR ON NPO ORDERED OG TUBE IN PLACE, PLACEMENT CHECKED BY AUSCULTATION, BED IN LOWEST AND LOCKED POSITION . PLAN OF CARE DISCUSSED WITH PATENT , ON SOFT RESTRAIN ORDERED WL CONT TO MONITOR CLOSELY, WITH GOOD CATH WITH YELLOW OPAL COLOR ILL CONT TO MONITOR CLOSELY
[2017-06-12 08:28] LABS: ABG OXYGEN SATURATION 93.9 % (92.0-98.5); ABG PCO2 34.8 mmHg (35.0-45.0); ABG PH 7.416 (7.350-7.450); ABG PO2 73.1 mmHg (75.0-100.0); AaDO2 172.1 mmHg; COHb 0.3 % (0.5-1.5); MetHb 0.3 % (0.0-1.5); O2Hb 93.3 % (94.0-97.0); PEEP,BG 5 cm H2O; SITE, ABG Right Radial; VENT MODE, BG AC 20 500 40%B +5; VT, ABG 500 mL
[2017-06-12] MEDS: ATORVASTATIN 40 MG TABLET PO SCH (08:29)
--- NOTE | 2017-06-12 08:30 | NUR ---
STABILIZER OPERATOR NOTE ON DIPRIVAN VOCATION AT THIS TIME , PATIENT OPEN HIS EYES AND BY CALLING HIS NAME , ALSO RESPONSE TO TACTILE STIMULI. SKIN WARM AND DRY , WILL CONT TO MONITOR CLOSELY ,
[2017-06-12] MEDS: CARVEDILOL 12.5 MG TABLET PO SCH ×2 (08:31→21:00)
[2017-06-12] MEDS: ASPIRIN EC 81 MG TABLET.DR PO SCH (08:31)
[2017-06-12] MEDS: AMLODIPINE BESYLATE 5 MG TABLET PO SCH (08:31)
--- NOTE | 2017-06-12 11:00 | NUR ---
MORTGAGE LOAN PROCESSING CLERK NOTE CONT ON DIPRIVAN 10 MCG\MIN ON IVF ORDERED, KEEP CLEAN DRY , REPOSITION Q 2 HOUR , WILL CONT TO MONITOR CLOSELY
--- NOTE | 2017-06-12 12:30 | NUR ---
[facility] NOTE UNABLE TO WEAN TO SIMV MODE , RR [address] BO WILL TRY TOMORROW
--- NOTE | 2017-06-12 15:41 | NUR ---
SHIP LABORER NOTE RT AT BEDSIDE, MOUTH CARE DONE OROPHARYNGEAL SUCTION DONE , CONT ON DIPRIVAN 15 MCG\MIN, NOT IN ACUTE DISTRESS, WILL CONT TO MONITOR CLOSELY
[2017-06-12] MEDS: RIVAROXABAN 15 MG TABLET PO SCH (16:27)
--- NOTE | 2017-06-12 16:39 | NUR ---
KNEE BOLTER NOTE T 99.4 COOLING MEASURE PROVIDED ,WILL CONT TO MONITOR CLOSELY
[2017-06-12] MEDS: ACETAMINOPHEN 325 MG TABLET PO PRN (17:43)
--- NOTE | 2017-06-12 18:00 | NUR ---
JAI ALAI PLAYER NOTE TYLENOL VIA OG GIVEN ,T 99.7 COOLING MEASURE PROVIDED .
--- NOTE | 2017-06-12 18:28 | NUR ---
PT TRACHED ON [facility] VENT WITH NOTED SETTING. VENT PLUGGED IN TO RED OUTLET. ALARMS SET AND AUDIBLE. AMBU BAG AT [facility]. NO SOB OR RESP DISTRESS NOTED ON SHIFT. HHN TX GIVEN ORDERED WITH NO ADVERSE REACTIONS. SX SMALL AMOUNT OF THICK YELLOW SECRETIONS PRN Addendum: 06/12/17 at 1829 by HAYLEY BROWNE RT Amended: Links added.
--- NOTE | 2017-06-12 18:29 | NUR ---
PUBLISHING MANAGER NOTE CONT ON DIPRIVAN 15 MCG\KG\MIN DUE TO RESTLESS BEFORE AND RR UP TO 32 WILL CONT TO MONITOR CLOSELY
--- NOTE | 2017-06-12 19:30 | NUR ---
Received patient sedated on Diprivan drip at mcg/kg/min still restless with bilateral soft wrist restraints on for safety.Patient intubated to vent on AC mode,SPO2 94%-95%.Afebrile.V-paced. OGT clamped.Placement verified.kept NPO. IVF infusing and site intact.FC to gravity draing clear yellow urine.Turned and repositioned.
--- NOTE | 2017-06-12 20:15 | NUR ---
Patient hypotensive SBP's 70's-60's called to with orders received.Called pharmacy for medication.Monitored closely.
[2017-06-12] MEDS ORDERED: NOREPINEPHRINE 8 MG in IV D5W 500 ML IV PRN (20:30)
--- NOTE | 2017-06-12 21:35 | NUR ---
Patient awake and restless.BP 135/73 Levophed Drip titrated off .Diprivan drip titrated as to sedation. Continue monitoring.
--- NOTE | 2017-06-12 22:15 | NUR ---
Levophed drip restarted and will titrate accordingly.BP 76/47
[2017-06-13] VITALS (91 sets, daily range): BP systolic 69–157; BP diastolic 44–92
[2017-06-13] MEDS: IV NS 0.9% 1,000 ML IV PRN (00:31)
[2017-06-13] MEDS: PROPOFOL 10MG/ML 50ML 50 ML IV PRN ×7 (00:32→23:28)
[2017-06-13] MEDS: IPRATROPIUM NEB FS 0.5 MG/2.5 ML AMPUL.NEB NEB SCH ×4 (02:12→19:56)
[2017-06-13] MEDS: methylPREDNISolone SOD SUCC 125 MG/2ML VIAL IV SCH ×3 (05:08→21:04)
[2017-06-13] MEDS: BLOOD SUGAR DIAGNOSTIC 1 EACH STRIP IN SCH ×3 (05:29→17:52)
[2017-06-13] MEDS: INSULIN REGULAR, HUMAN 100 UNIT/ML 3 ML VIAL SQ PRN ×3 (05:30→17:55)
[2017-06-13 06:00] LABS: EOSINOPHILS % (AUTO) 0.1 % (0.0-6.0); HEMATOCRIT 38 % (39-51); HEMOGLOBIN 12.9 g/dL (13.5-17.5); LYMPHOCYTES # (AUTO) 0.7 /CMM (0.8-4.8); LYMPHOCYTES % (AUTO) 6.6 % (20.0-44.0); MEAN CORPUSCULAR HEMOGLOBIN 32 PG (26.0-33.0); MEAN CORPUSCULAR HGB CONC 34 g/dl (31.0-36.0); MEAN CORPUSCULAR VOLUME 95 fL (80-96); MONOCYTES # (AUTO) 0.6 /CMM (0.1-1.30); MONOCYTES % (AUTO) 5.3 % (2.0-12.0); NEUTROPHILS # (AUTO) 9.5 /CMM (1.8-8.9); PLATELET COUNT (AUTO) 119 /CMM (150-450); RDW COEFFICIENT OF VARIATION 14.5 (11.5-15.0); RED BLOOD CELL COUNT(AUTO) 3.99 MIL/uL (4.5-6.0); WHITE BLOOD COUNT (AUTO) 10.8 K/uL (4.3-11.0)
[2017-06-13 06:15] LABS: CALCIUM, SERUM 8.4 mg/dL (8.5-10.1); CARBON DIOXIDE 23 mmol/L (21-32); CHLORIDE 112 mmol/L (98-107); CREATININE 3.2 mg/dL (0.6-1.3); GLUCOSE 174 mg/dL (74-106); POTASSIUM 3.8 mmol/L (3.5-5.1); SODIUM SERUM 149 mmol/L (136-145)
--- NOTE | 2017-06-13 06:15 | NUR ---
PT RECEIVED INTUBATED WITH ETT AND ON [facility] VENT WITH NOTED SETTING. VENT PLUGGED IN TO RED OUTLET. ALARMS SET AND AUDIBLE. AMBU BAG AT [facility]. NO SOB OR RESP DISTRESS NOTED ON SHIFT. HHN TX GIVEN ORDERED WITH NO ADVERSE REACTIONS. SX SMALL AMOUNT OF THICK YELLOW SECRETIONS PRN
[2017-06-13 06:16] LABS: UREA NITROGEN, BLOOD 104 mg/dL (7-18)
--- NOTE | 2017-06-13 06:35 | NUR ---
Patient remains sedated on Diprivan drip.BP very labile.Levophed drip titrated accordingly to keep MAP >65.BM x1 loose coffee ground stool.Perineal care done.Bathed and complete linens changed.Oral care done.Turned and repositioned.BS monitored coverage given per sliding scale. No acute distress noted.
--- NOTE | 2017-06-13 07:02 | NUR ---
SUPERVISOR EXTRUSION- INITIAL NOTE RECEIVED PT INTUBATED & SEDATED. PT ORALLY INTUBATED 7.5, 25 CM @ THE LIP. BEDSIDE MONITOR REVEALS V-PACING. OGT PRESENT & CLAMPED. GOOD CATHETER PRESENT & DRAINING TO GRAVITY. RAC 20G AND LEFT HAND 20G IVS FLUSHED, PATENT & INTACT, RUNNING DIPRIVAN GTT @ 30 MCG/MIN, NS @ 50 ML/HR AND LEVOPHED @ 1.5 MCG/MIN. SAFETY MEASURES TAKEN: BED LOCKED AND IN LOW POSITION, SIDE RAILS UP X2 AND BED ALARM ON, WILL CONTINUE TO MONITOR.
--- NOTE | 2017-06-13 07:25 | NUR ---
PT RECEIVED ON VENT SUPPORT VIA ET TUBE WITH PARAMETERS BELLOW SET PER ORDER: AC 20 VT 500 FIO2 40% PEEP 5 B/S CLEAR BILATERAL VENT IS PLUGGED INTO RED OUTLET WITH ALARMS ON AND FUNCTIONING. KAELYN @ BEDSIDE. Addendum: 06/13/17 at 0929 by SHARIFA WELSH RT Amended: Links added.
[2017-06-13] MEDS: CARVEDILOL 12.5 MG TABLET PO SCH ×2 (08:03→21:00)
[2017-06-13] MEDS: AMLODIPINE BESYLATE 5 MG TABLET PO SCH (08:04)
[2017-06-13] MEDS: ATORVASTATIN 40 MG TABLET PO SCH (08:45)
[2017-06-13] MEDS: ASPIRIN EC 81 MG TABLET.DR PO SCH (08:45)
--- NOTE | 2017-06-13 09:00 | NUR ---
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 PT PUT ON SIMV MODE BY RT. PT AWAKE & ALERT, ABLE TO FOLLOW COMMANDS. 1100- DR. PRINCE AT BEDSIDE. PER MD, PLACE PT ON CPAP MODE. PT AWAKE & ALERT, ABLE TO FOLLOW COMMANDS. NO RESPIRATORY DISTRESS NOTED. FAMILY AT BEDSIDE. 1315- PT DISPLAYING TACHYPNEA AND INCREASED RESPIRATORY EFFORT. PER DR. PRINCE, PLACE BACK ON AC MODE. DIPRIVAN RE-STARTED AT PREVIOUS RATE. FAMILY AT BEDSIDE AND UPDATED WITH PLAN OF CARE. WILL CONTINUE TO MONITOR.
--- NOTE | 2017-06-13 09:19 | NUR ---
WEANING TRIALS ORDERED: SIMV 4/ PS 15, FIO2 40%, PEEP +5 Addendum: 06/13/17 at 0920 by SHARIFA WELSH RT Amended: Links added.
[2017-06-13 09:55] LABS: BAND % (MANUAL) 9 % (0.0-5.0); LYMPHOCYTES % (MANUAL) 9 % (16-48); MONOCYTES % (MANUAL) 9 % (0-11.0); NEUTROPHILS % (MANUAL) 73 (42-76)
[2017-06-13 10:09] LABS: ABG OXYGEN SATURATION 94.6 % (92.0-98.5); ABG PCO2 31.8 mmHg (35.0-45.0); ABG PH 7.425 (7.350-7.450); ABG PO2 79.3 mmHg (75.0-100.0); AaDO2 169.3 mmHg; COHb 0.3 % (0.5-1.5); MetHb 0.3 % (0.0-1.5); PEEP,BG 5 cm H2O; SITE, ABG Left Brachial; VENT MODE, BG SIMV 4 / PS 15; VT, ABG 500 mL
--- NOTE | 2017-06-13 11:09 | NUR ---
CPAP 5 PS 12 FIO2 40% Addendum: 06/13/17 at 1109 by SHARIFA WELSH RT Amended: Links added.
[2017-06-13] MEDS: IV D5/0.45 NACL 1,000 ML IV PRN ×2 (11:50→23:29)
[2017-06-13 12:12] LABS: ABG BASE EXCESS -3.9 mmol/L; ABG OXYGEN SATURATION 94.5 % (92.0-98.5); ABG PCO2 31.7 mmHg (35.0-45.0); ABG PH 7.411 (7.350-7.450); ABG PO2 80.4 mmHg (75.0-100.0); AaDO2 168.3 mmHg; COHb 0.3 % (0.5-1.5); MetHb 0.3 % (0.0-1.5); O2Hb 93.9 % (94.0-97.0); SITE, ABG Right Brachial; VENT MODE, BG CPAP 5 / PS 12
--- NOTE | 2017-06-13 13:16 | NUR ---
BACK TO AC MODE DUE TO 36 RR. Addendum: 06/13/17 at 1317 by SHARIFA WELSH RT Amended: Links added.
[2017-06-13] MEDS: RIVAROXABAN 15 MG TABLET PO SCH (17:49)
--- NOTE | 2017-06-13 20:15 | NUR ---
ICU/FLAGMAN BLOOD PRESSURE IS LOW, IN THE 60'S TO 70'S. PT HAD LEVO TURNED OFF AT 1700 BY DAY CHARGE NURSE. WILL MONITOR THIS. CHARGE NURSE AWARE OF THE LOW BLOOD PRESSURE.
--- NOTE | 2017-06-13 20:35 | NUR ---
ICU/SAND SYSTEM OPERATOR LEVO 2 MCG STARTED DUE TO LOW BP, CHARGE NURSE AWARE AND STARTED THIS. WILL CONTINUE TO MONITOR THE BP.FAMILY AT BEDSIDE
--- NOTE | 2017-06-13 20:41 | NUR ---
PT RECEIVED INTUBATED ON VENT. NO RESP DISTRESS NOTED. PT TOLERATING VENT SETTINGS. SX'D FOR MOD AMT OF THICK PALE SECRETIONS. VENT ALARMS SET AND AUDIBLE. AMBU BAG AT BEDSIDE. WILL CONTINUE TO MONITOR. Addendum: 06/13/17 at 2042 by WILMA SEXTON RT Amended: Links added.
--- NOTE | 2017-06-13 20:45 | NUR ---
ICU/GRADUATE ENGINEER BLOOD PRESSURE CONTINUES TO BE LOW, CHARGE NURSE MADE AWARE OF THIS. INCREASED LEVO TO 4MCG FROM 2 BY CHARGE NURSE. WILL CONTINUE TO MONITOR THIS PT BP.
--- NOTE | 2017-06-13 21:00 | NUR ---
ICU/PILOT PT HAS LEVO GOING THROUGH PERIPHERAL LINE, CALLED MD FOR AN ORDER FOR CENTRAL LINE. GOT A ORDER THEN CALLED NURSING SUP TO CALL PIC PERSON
--- NOTE | 2017-06-13 22:20 | NUR ---
ICU/INSTRUCTIONAL MATERIALS DIRECTOR PICC LINE WAS PLACED ALL PERIPHERAL IV LINES MOVED TO THE CENTRAL LINE. WELL THE LEVO WILL MONITOR THIS PT'S BP
[2017-06-14] VITALS (69 sets, daily range): BP systolic 93–140; BP diastolic 52–77
--- NOTE | 2017-06-14 00:40 | NUR ---
ICU/TRANSFER MACHINE OPERATOR BLOOD SUGAR IS 242, THIS IS COVERED WITH SLIDING SCALE ORDERED BY MD. WILL CONTINUE TO MONITOR THIS PER MD ORDERERS.
[2017-06-14] MEDS: PROPOFOL 10MG/ML 50ML 50 ML IV PRN ×7 (01:22→22:51)
[2017-06-14] MEDS: BLOOD SUGAR DIAGNOSTIC 1 EACH STRIP IN SCH ×4 (01:22→18:04)
[2017-06-14] MEDS: IPRATROPIUM NEB FS 0.5 MG/2.5 ML AMPUL.NEB NEB SCH ×4 (01:25→19:38)
[2017-06-14] MEDS: INSULIN REGULAR, HUMAN 100 UNIT/ML 3 ML VIAL SQ PRN ×3 (01:29→11:44)
[2017-06-14] MEDS: methylPREDNISolone SOD SUCC 125 MG/2ML VIAL IV SCH ×3 (05:17→21:06)
--- NOTE | 2017-06-14 05:20 | NUR ---
ICU/FOOTWEAR SALES ASSOCIATE BLOOD SUGAR IS 220, THIS IS COVERED WITH SLIDING SCALE ORDERED BY MD. WILL CONTINUE TO MONITOR THIS PER MD ORDERERS.
[2017-06-14 05:28] LABS: BASOPHILS % (AUTO) 0.1 % (0.0-2.0); HEMATOCRIT 37 % (39-51); HEMOGLOBIN 12.5 g/dL (13.5-17.5); LYMPHOCYTES # (AUTO) 0.5 /CMM (0.8-4.8); MEAN CORPUSCULAR HEMOGLOBIN 33 PG (26.0-33.0); MEAN CORPUSCULAR HGB CONC 34 g/dl (31.0-36.0); MEAN CORPUSCULAR VOLUME 96 fL (80-96); MONOCYTES # (AUTO) 0.3 /CMM (0.1-1.30); MONOCYTES % (AUTO) 2.9 % (2.0-12.0); NEUTROPHILS # (AUTO) 9.2 /CMM (1.8-8.9); PLATELET COUNT (AUTO) 128 /CMM (150-450); RDW COEFFICIENT OF VARIATION 14.6 (11.5-15.0); RED BLOOD CELL COUNT(AUTO) 3.84 MIL/uL (4.5-6.0); WHITE BLOOD COUNT (AUTO) 10.1 K/uL (4.3-11.0)
[2017-06-14 05:54] LABS: CALCIUM, SERUM 8.1 mg/dL (8.5-10.1); CARBON DIOXIDE 24 mmol/L (21-32); CHLORIDE 113 mmol/L (98-107); CREATININE 2.8 mg/dL (0.6-1.3); GLUCOSE 276 mg/dL (74-106); POTASSIUM 3.6 mmol/L (3.5-5.1); SODIUM SERUM 147 mmol/L (136-145)
[2017-06-14 06:03] LABS: UREA NITROGEN, BLOOD 106 mg/dL (7-18)
--- NOTE | 2017-06-14 07:00 | NUR ---
SENIOR PROGRAM PLANNER- INITIAL NOTE RECEIVED PT INTUBATED & SEDATED. PT ORALLY INTUBATED 7.5, 25 CM @ THE LIP. BEDSIDE MONITOR REVEALS V-PACING. BILATERAL SOFT WRIST RESTRAINTS IN PLACE. OGT PRESENT & CLAMPED. GOOD CATHETER PRESENT & DRAINING TO GRAVITY. RAC 20G AND LEFT HAND 20G IVS FLUSHED, PATENT & INTACT. JERAMY PICC LINE RUNNING DIPRIVAN GTT @ 30 MCG/MIN, NS @ 50 ML/HR AND LEVOPHED @ 4 MCG/MIN. SAFETY MEASURES TAKEN: BED LOCKED AND IN LOW POSITION, SIDE RAILS UP X2 AND BED ALARM ON, WILL CONTINUE TO MONITOR.
--- NOTE | 2017-06-14 08:09 | NUR ---
RT PATIENT REC'D ORALLY INTUBATED ON [facility] VENT WITH SETTINGS TOLERATED WELL. VENT ALARMS CHECKED + AUDIBLE. CUFF PRESSURE CHECKED PARKS WORKER. SX'D WITH SMALL/MOD AMT PALE SEMITHICK SECRETIONS. B/S DIM. AMBU BAG AT [facility]. CONT CURRENT PLAN OF RESP CARE. Addendum: 06/14/17 at 0846 by KIRILL FABIAN RT Amended: Links added.
[2017-06-14] MEDS: ATORVASTATIN 40 MG TABLET PO SCH (08:18)
[2017-06-14] MEDS: ASPIRIN EC 81 MG TABLET.DR PO SCH (08:18)
[2017-06-14] MEDS: CARVEDILOL 12.5 MG TABLET PO SCH (08:24)
[2017-06-14] MEDS: AMLODIPINE BESYLATE 5 MG TABLET PO SCH (08:24)
--- NOTE | 2017-06-14 09:55 | NUR ---
LAMINATING MACHINE OPERATOR HELPER- DR. LY AT BEDSIDE. UPDATED MD ON THE FOLLOWING: PER PREVIOUS NURSE, PT HAD DARK BROWN SECRETIONS FROM NGT. MD AWARE AND STATES IT IS OK TO START PT ON NGT FEEDING (HEMOGLOBIN & HEMATOCRIT STABLE). WILL CONTINUE TO MONITOR CLOSELY. 1045- SPOKE TO SENIOR NATIONAL ACCOUNT MANAGER. RECOMMENDATIONS FOR NGT FEEDING IS GLYTROL. START AT 45 ML/HR, GOAL IS 75 ML/HR. ORDERS PLACED. WILL CONTINUE TO MONITOR.
[2017-06-14] MEDS: GLYTROL 1,000 ML BAG GT PRN (14:07)
[2017-06-14] MEDS: RIVAROXABAN 15 MG TABLET PO SCH (18:02)
[2017-06-14] MEDS ORDERED: DEXTROSE 50%-WATER 50 ML DISP.SYRIN IV PRN (18:30)
--- NOTE | 2017-06-14 19:45 | NUR ---
ICU/FLUOROSCOPE OPERATOR RECEIVED REPORT FROM DAY NURSE, PT IS SEDATION OF DEPRO AT 30 MCG, WITH RESTRAINTS IN PLACE. PT IS ORALLY INTUBATED, TOLERATING CURRENT VENT SETTINGS WITH SATURATION AT 100%. OG/TUBE FEEDING AT 65ML/ WITH 10 ML RESIDUALS.. GOOD CATH DRAINING YELLOW URINE. SKIN ISSUES ARE ADDRESSED ON FLOW SHEET. PT WAS TURNED AND REPOSITIONED FOR COMFORT AND CARE.
--- NOTE | 2017-06-14 21:16 | NUR ---
PT RECEIVED INTUBATED ON VENT. NO RESP DISTRESS NOTED. PT TOLERATING VENT SETTINGS. SX'D FOR MOD AMT OF THICK PALE SECRETIONS. VENT ALARMS SET AND AUDIBLE. AMBU BAG AT BEDSIDE. WILL CONTINUE TO MONITOR. Addendum: 06/14/17 at 2116 by WILMA SEXTON RT Amended: Links added.
[2017-06-14] MEDS: IV D5/0.45 NACL 1,000 ML IV PRN (21:21)
[2017-06-15] VITALS (34 sets, daily range): BP systolic 92–163; BP diastolic 51–84
[2017-06-15] MEDS: BLOOD SUGAR DIAGNOSTIC 1 EACH STRIP IN SCH ×5 (00:14→23:49)
[2017-06-15] MEDS: INSULIN REGULAR, HUMAN 100 UNIT/ML 3 ML VIAL SQ PRN ×5 (00:15→23:52)
--- NOTE | 2017-06-15 00:30 | NUR ---
ICU/CARTON LINER BLOOD SUGAR IS 282, THIS IS COVERED WITH SLIDING SCALE ORDERED BY MD. WILL CONTINUE TO MONITOR THIS PER MD ORDERERS.PT WAS TURNED AND REPOSITIONED FOR COMFORT AND CARE
[2017-06-15] MEDS: IPRATROPIUM NEB FS 0.5 MG/2.5 ML AMPUL.NEB NEB SCH ×4 (01:24→20:07)
--- NOTE | 2017-06-15 02:05 | NUR ---
ICU/BILINGUAL OPERATOR PT WAS GIVEN CARE AT THIS TIME ALONG WITH ORAL CARE. ALSO PICTURES OF ANY WOUNDS WERE TAKEN AND PLACED IN CHART PER [employer] [employer] ON WOUND MGNT. PT REMAINS ON CURRENT VENT SETTINGS TOLERATING THIS WELL. PT WAS TURNED AND REPOSITIONED FOR COMFORT AND CARE.
[2017-06-15] MEDS: PROPOFOL 10MG/ML 50ML 50 ML IV PRN ×7 (02:06→23:57)
--- NOTE | 2017-06-15 03:45 | NUR ---
ICU/LUBRICATING SPECIALIST PT HAS INCREASED RESIDUALS FROM O/G TUBE THAT WERE 85ML/HR. DECREASED THE FEEDING TO 45ML. WILL CONTINUE TO MONITOR THE RESIDUALS IN THE FEEDING.
[2017-06-15] MEDS: methylPREDNISolone SOD SUCC 125 MG/2ML VIAL IV SCH ×3 (04:55→21:14)
--- NOTE | 2017-06-15 06:09 | NUR ---
ICU/MOUNTER SOUSAPHONES BLOOD SUGAR IS 325, THIS IS COVERED WITH SLIDING SCALE ORDERED BY MD. WILL CONTINUE TO MONITOR THIS PER MD ORDERERS.PT WAS TURNED AND REPOSITIONED FOR COMFORT AND CARE. NO ACUTE DISTRESS SEEN AT THIS TIME.
--- NOTE | 2017-06-15 07:02 | NUR ---
SUBSTITUTE TEACHER- INITIAL NOTE RECEIVED PT INTUBATED & SEDATED. PT ORALLY INTUBATED 7.5, 25 CM @ THE LIP. BEDSIDE MONITOR REVEALS V-PACING. BILATERAL SOFT WRIST RESTRAINTS IN PLACE. OGT PRESENT RUNNING GLYTROL @ 45 ML/HR. GOOD CATHETER PRESENT & DRAINING TO GRAVITY. RAC 20G AND LEFT HAND 20G IVS FLUSHED, PATENT & INTACT. JERAMY PICC LINE RUNNING DIPRIVAN GTT @ 30 MCG/MIN AND NS @ 50 ML/HR. SAFETY MEASURES TAKEN: BED LOCKED AND IN LOW POSITION, SIDE RAILS UP X2 AND BED ALARM ON, WILL CONTINUE TO MONITOR.
[2017-06-15] MEDS: ASPIRIN EC 81 MG TABLET.DR PO SCH (08:15)
[2017-06-15] MEDS: ATORVASTATIN 40 MG TABLET PO SCH (08:15)
--- NOTE | 2017-06-15 09:00 | NUR ---
E BUSINESS MANAGER- SEDATION VACATION COMPLETED. PT AWAKE, ABLE TO OPEN EYES AND FOLLOW SIMPLE COMMANDS. AFTER 15 MINS, DIPRIVAN RE-STARTED AT PREVIOUS RATE PER PROTOCOL. WILL CONTINUE TO MONITOR. Addendum: 06/15/17 at 1937 by PETER JUARES RN DIPRIVAN RE-STARTED DUE TO PT BEING TACHYPNEIC, RESPIRATIONS 30-35S AND TACHYCARDIA.
--- NOTE | 2017-06-15 09:18 | NUR ---
SERVICER- DR. BO AT BEDSIDE. UPDATED MD ON PT'S CONDITION. PER MD, NO PLANS FOR WEANING TODAY. WILL RE-ASSESS WEANING TRIALS TOMORROW. WILL CONTINUE TO MONITOR.
[2017-06-15 09:38] LABS: BASOPHILS % (AUTO) 0.1 % (0.0-2.0); HEMATOCRIT 33 % (39-51); HEMOGLOBIN 11.4 g/dL (13.5-17.5); LYMPHOCYTES # (AUTO) 0.4 /CMM (0.8-4.8); LYMPHOCYTES % (AUTO) 3.9 % (20.0-44.0); MEAN CORPUSCULAR HEMOGLOBIN 33 PG (26.0-33.0); MEAN CORPUSCULAR HGB CONC 34 g/dl (31.0-36.0); MEAN CORPUSCULAR VOLUME 96 fL (80-96); MONOCYTES # (AUTO) 0.3 /CMM (0.1-1.30); MONOCYTES % (AUTO) 2.8 % (2.0-12.0); NEUTROPHILS % (AUTO) 93.2 % (43.0-81.0); PLATELET COUNT (AUTO) 116 /CMM (150-450); RDW COEFFICIENT OF VARIATION 14.4 (11.5-15.0); RED BLOOD CELL COUNT(AUTO) 3.46 MIL/uL (4.5-6.0); WHITE BLOOD COUNT (AUTO) 9.7 K/uL (4.3-11.0)
[2017-06-15 10:12] LABS: CALCIUM, SERUM 7.3 mg/dL (8.5-10.1); CARBON DIOXIDE 23 mmol/L (21-32); CHLORIDE 107 mmol/L (98-107); CREATININE 2.4 mg/dL (0.6-1.3); POTASSIUM 3.5 mmol/L (3.5-5.1); SODIUM SERUM 142 mmol/L (136-145)
[2017-06-15 10:24] LABS: GLUCOSE 511 mg/dL (74-106); UREA NITROGEN, BLOOD 88 mg/dL (7-18)
--- NOTE | 2017-06-15 10:24 | NUR ---
CORE DRILL OPERATOR HELPER- RECEIVED CRITICAL LAB RESULTS OF GLUCOSE LEVEL= 511 AND BUN= 88. CALLED AND INFORMED DR. LY. OBTAINED ORDERS TO D/C MILD SLIDING SCALE TUBE FEEDING AND ORDER AGGRESSIVE SLIDING SCALE Q6H. ORDERS PLACED. WILL CONTINUE TO MONITOR.
[2017-06-15] MEDS ORDERED: DEXTROSE 50%-WATER 50 ML DISP.SYRIN IV PRN (10:30)
[2017-06-15] MEDS: GLYTROL 1,000 ML BAG GT PRN (11:53)
[2017-06-15] MEDS: RIVAROXABAN 15 MG TABLET PO SCH (17:42)
--- NOTE | 2017-06-15 18:43 | NUR ---
RT END OF THE SHIFT REPORT, PT. 86 Y OLD MALE REMAIN ORALLY INTUBATED, ETT # 7.5 @ 23 CM LIPLINE REMAIN ON [facility]. VENT.WITH NOTED SETTINGS, ALARMS ARE SET AND FUNCTIONAL. EQUAL CHEST RISE NOTED, BILATERALLY RALES SUX'D FOR MINIMAL WHITE SECRETIONS. NO RESPIRATORY DISTRESS NOTED T/O DAY AND PT. REMAIN STABLE. TX'S GIVEN INLINE AND NO ADVERSE REACTION NOTED. NO CHANGES T/O SHIFT VENT PLUGGED INTO RED OUTLET. AMBU BAG AT THE BEDSIDE. CONTINUE FOR MONITOR AND CARE REPORT WILL PASS TO PM SHIFT. Addendum: 06/15/17 at 1844 by SALTY JIMENEZ RT Amended: Links added.
--- NOTE | 2017-06-15 19:30 | NUR ---
RN NOTES PT IS ON BED SEDATED. ORALLY INTUBATED, ETT 7.5 @ 23 CM LIP LINE. CONNECTED TO VENT SETTING AC 20 TV 500 FIO2 40% PEEP5 TOLERATED WELL NO ACUTE RESP DISTRESS. TELE MONITOR REVEALS V-PACING HR 101. SATING 97%. WITH OGTF GLYTROL @ 45 CC/HR INTACT, PATENCY CHECKED WITH ZERO RESIDUAL. IV SITE ON JERAMY PICC LINE WITH DIPRIVAN AT 3OMCG/KG/MIN. TOLERATED WELL . GOOD CATH DRAINED WITH OPAL COLOR URINE VIA GRAVITY. VS STABLE. KEPT PT CLEAN AND DRY . WILL MONITOR CLOSELY.
--- NOTE | 2017-06-15 21:15 | NUR ---
RN NOTES ADMINISTERED MEDICINE ORDERED. TURNED AND REPOSITIONED FOR SKIN MGMT. KEPT COMFORTABLE IN BED. REMAINED SEDATED WITH DIPRIVAN. BILATERAL SOFT WRIST RESTRAINT KEPT IN PLACED. WILL CONTINUE TO MONITOR.
--- NOTE | 2017-06-15 22:30 | NUR ---
RN NOTES NURSING CARE PROVIDED. BED BATH DONE WITH MODERATE AMT OF SOFT STOOL PRESENT. INCONTINENT CARE PROVIDED. ETT REMAINED INTACT WELL OGT. TOLERATED BED BATH WITHOUT ACUTE RESP DISTRESS. WILL CONTINUE TO MONITOR.
--- NOTE | 2017-06-15 23:50 | NUR ---
RN NOTES BS =156 MG/DL ADMINISTERED INSULIN 2UNITS FOLLOWS FROM INSULIN SLIDING SCALE. WILL CONTINUE TO MONITOR.
[2017-06-16] VITALS (49 sets, daily range): BP systolic 87–182; BP diastolic 54–104
[2017-06-16] MEDS: IPRATROPIUM NEB FS 0.5 MG/2.5 ML AMPUL.NEB NEB SCH ×4 (02:12→19:34)
[2017-06-16] MEDS: PROPOFOL 10MG/ML 50ML 50 ML IV PRN ×5 (03:31→16:42)
[2017-06-16] MEDS: GLYTROL 1,000 ML BAG GT PRN ×2 (04:54→23:25)
[2017-06-16] MEDS: methylPREDNISolone SOD SUCC 125 MG/2ML VIAL IV SCH ×3 (04:57→20:44)
[2017-06-16] MEDS: BLOOD SUGAR DIAGNOSTIC 1 EACH STRIP IN SCH ×4 (05:05→23:28)
[2017-06-16] MEDS: INSULIN REGULAR, HUMAN 100 UNIT/ML 3 ML VIAL SQ PRN ×4 (05:09→23:27)
--- NOTE | 2017-06-16 05:15 | NUR ---
RN NOTES PT BS= 221 MG/DL ADMINISTERED 8 UNITS REGULAR INSULIN ORDERED PER SLIDING SCALE. NO S/S OF HYPERGLYCEMIA, OGTF TOLERATED WELL. WITH RESIDUAL OF 15 CC/HR. HOB KEPT ELEVATED ALL THE TIME.
--- NOTE | 2017-06-16 06:41 | NUR ---
RN NOTES PT REMAINED ON ETT TOLERATED VENT SETTING WELL SATING >95%. SUCTIONED WITH SMALL AMT THICK SECRETION. REMAINED SEDATED WITH DIPRIVAN DRIP @ 30 MCG/KG/MIN. PT REMAINS CALM. OGTF TOLERATED WELL. VS WNL NO ACUTE RESP DISTRESS. AFEBRILE THROUGHOUT THE SHIFT. BED BATH DONE PERICARE PROVIDED. TURNED AND REPOSITIONED PROTOCOL AND PRN. SKIN CARE PROVIDED. F/C INTACT AND PATENT. KEPT PT CLEAN AND DRY. WILL ENDORSED CONTINUITY OF CARE TO AM NURSE.
--- NOTE | 2017-06-16 08:04 | NUR ---
INITIAL LAWN TECHNICIAN NOTE RCVD PT SEDATED ON DIPRIVAN, INTUBATED TOLERATING ORDERED VENT SETTINGS WITH PLAN OF WEANING LATER THIS AM. V-PACING ON TELE. GOOD TO GRAVITY DRAINING CLEAR, YELLOW URINE. OG-TUBE PLACEMENT VERIFIED BY AUSCULTATION/ASPIRATION. LESS THAN 5ML RESIDUAL OBTAINED. IV SITES C/D/I/PATENT. NO S/O INFILTRATION/PHLEBITIS OBSERVED UPON FLUSHING. WILL CONTINUE TO MONITOR PT FOR SAFETY AND COMFORT. CALL LIGHT WITHIN REACH. BED IN LOW AND LOCKED POSITION.
--- NOTE | 2017-06-16 08:45 | NUR ---
DELIVERY CREW MEMBER NOTE PT OFF SEDATION UNDERGOING WEANING TRIAL. PT ABLE TO FOLLOW COMMANDS IN CZECH WITH ASSISTANCE OF CORY COREA (CZECH SPEAKING RN) SUCH CLOSE EYES SHUT AND SQUEEZE HANDS. PT WAS EXPLAINED WEANING PROCESS AND APPEARS CALM AT THIS TIME WILL CONTINUE TO MONITOR.
[2017-06-16] MEDS: ASPIRIN 81 MG TAB.CHEW PO SCH (09:55)
[2017-06-16] MEDS: ATORVASTATIN 40 MG TABLET PO SCH (09:55)
[2017-06-16] MEDS: PROSOURCE / PROSTAT (PYXIS) 30 ML UDC GT SCH ×2 (09:55→17:36)
[2017-06-16 09:59] LABS: ABG BASE EXCESS -3.7 mmol/L; ABG PCO2 62.2 mmHg (35.0-45.0); ABG PH 7.224 (7.350-7.450); ABG PO2 67.8 mmHg (75.0-100.0); AaDO2 145.9 mmHg; COHb 0.3 % (0.5-1.5); MetHb 0.5 % (0.0-1.5); O2Hb 88.3 % (94.0-97.0); PEEP,BG 5 cm H2O; SITE, ABG Left Radial; VENT MODE, BG SIMV PS 12
--- NOTE | 2017-06-16 10:41 | NUR ---
DOG RAISER NOTE PT FAILED WEANING. RESPIRATORY ACIDOSIS ON ABG. PT HYPERTENSIVE, TACHYCARDIC, TACHYPNEIC DURING TRIAL. PT OBSERVED WORKING HARD TO BREATHE, BECAME DIAPHORETIC. PT PLACED BACK ON AC MODE PER DR. BO. PT'S SON AT BEDSIDE EDUCATED AND INFORMED OF MD's DECISION TO PLACE PT BACK ON AC MODE.
[2017-06-16] MEDS ORDERED: LORAZEPAM INJ 2 MG/ML VIAL IV PRN (15:30)
[2017-06-16 15:58] LABS: CALCIUM, SERUM 7.7 mg/dL (8.5-10.1); CARBON DIOXIDE 23 mmol/L (21-32); CHLORIDE 113 mmol/L (98-107); CREATININE 2.1 mg/dL (0.6-1.3); GLUCOSE 316 mg/dL (74-106); POTASSIUM 4.2 mmol/L (3.5-5.1); SODIUM SERUM 148 mmol/L (136-145)
[2017-06-16 16:08] LABS: UREA NITROGEN, BLOOD 91 mg/dL (7-18)
--- NOTE | 2017-06-16 16:45 | NUR ---
FURNACE PROCESS PLANT OPERATOR NOTE RCVD TRIGLYCERIDES RESULTS 869 PT ON DIPRIVAN. JOON INSURANCE LOSS ADJUSTER CONTACTED CHANGED SEDATION TO VERSED AND FENTANYL. PER JOON IF PT TOLERATES VERSED ONLY JUST USE VERSED OTHERWISE ADD FENTANYL TO HIS SEDATION. ORDERS ENTERED AND ACKNOWLEDGED. SANITATION LEAD PUMPS REQUESTED FROM CENTRAL SUPPLY. WILL CONTINUE TO MONITOR UNTIL MEDICATION IS RECEIVED.
[2017-06-16] MEDS ORDERED: FENTANYL CITRATE IV 1,250 MCG in IV NS 0.9% 225 ML IV PRN (17:00)
[2017-06-16] MEDS: RIVAROXABAN 15 MG TABLET PO SCH (17:41)
--- NOTE | 2017-06-16 17:56 | NUR ---
RT END OF THE SHIFT REPORT, PT. 86 Y OLD MALE REMAIN ORALLY INTUBATED, ETT # 7.5 @ 23 CM LIPLINE REMAIN ON [facility]. VENT.WITH NOTED SETTINGS, ALARMS ARE SET AND FUNCTIONAL. EQUAL CHEST RISE NOTED, BILATERALLY CLEAR/FINE SUX'D FOR LARGE FOAMY RED THIN SECRETIONS. NO RESPIRATORY DISTRESS NOTED T/O DAY WEANING TRAIL STARTED AND FAILED PLACED BACK ON AC @1000 AM AND PT. REMAIN STABLE.HME CHANGED MANY TIMES, TX'S GIVEN INLINE AND NO ADVERSE REACTION NOTED. FAMILY AT THE BEDSIDE T/O SHIFT VENT PLUGGED INTO RED OUTLET. AMBU BAG AT THE BEDSIDE. CONTINUE FOR MONITOR AND CARE. REPORT WILL PASS TO PM SHIFT. Addendum: 06/16/17 at 1759 by SALTY JIMENEZ RT Amended: Links added.
[2017-06-16] MEDS: MIDAZOLAM HCL 100 MG in IV NS 0.9% 80 ML IV PRN (18:42)
--- NOTE | 2017-06-16 19:30 | NUR ---
RN INITIAL NOTES: RECEIVED PATIENT ON BED SEDATED WITH ONGOING VERSED AT 2MG/HR FOR SEDATION. INTUBATED WITH ETT 7.5, ON AC MODE, TV 500 FIO2 40% AND PEEP OF 5. VPACING ON THE MONITOR HR IN THE 90'S. OGT INTACT, VERIFIED PLACEMENT VIA AUSCULTATION. NO RESIDUALS NOTED AT THIS POINT, GT FEEDING NOW AT 55 MLS/HR TO INCREASE TO ACHIEVE GOAL RATE. IV ACCESS ON JERAMY PICC LINE, PATENT INTACT. GOOD CATH DRAINING TO A CLOSED SYSTEM, VIA GRAVITY. SAFETY MEASURES AND ASPIRATION PRECAUTIONS ENSURED. RESTRAINTS REMAINED INTACT. CONTINUOUSLY MONITORED.
--- NOTE | 2017-06-16 19:35 | NUR ---
RN NOTES: RECEIVED REPORT FROM AM SHIFT RN THAT FENTANYL DRIP WAS NOT STARTED AFTER RECEIVING VERBAL ORDER FROM MICHAEL DUPREE THAT IF PATIENT IS KEPT SEDATED WITH VERSED TO JUST KEEP ON VERSED DRIP. RECEIVED VERSED DRIP CURRENTLY AT A RATE OF 2MG/HR. PATIENT REMAINS SEDATED AT THIS TIME. COPY AND PRINT ASSOCIATE VIK AWARE.
--- NOTE | 2017-06-16 19:55 | NUR ---
JOINT MAKER MACHINE NOTE PT REMAINS STABLE, TOLERATING ORDERED VENT SETTINGS. SEDATED ON VERSED.V-PACING ON TELE. GOOD TO GRAVITY DRAINING CLOUDY, YELLOW URINE. IV SITES C/D/I/PATENT. NO S/O INFILTRATION/PHLEBITIS OBSERVED UPON FLUSHING. PT'S CARE ENDORSED TO REHABILITATION MEDICINE PHYSICIAN RN FOR CONTINUITY OF CARE.
--- NOTE | 2017-06-16 20:16 | NUR ---
PT RECEIVED INTUBATED 7.5 AT 23CM AT THE LIP ON VENT. NO RESP DISTRESS NOTED. PT TOLERATING VENT SETTINGS. SX'D FOR MOD AMT OF THICK WOO SECRETIONS. VENT ALARMS SET AND AUDIBLE. AMBU BAG AT BEDSIDE. WILL CONTINUE TO MONITOR. Addendum: 06/16/17 at 2017 by WILMA SEXTON RT Amended: Links added.
[2017-06-16] MEDS: CARVEDILOL 12.5 MG TABLET PO SCH (20:44)
[2017-06-17] VITALS (51 sets, daily range): BP systolic 100–155; BP diastolic 56–85
--- NOTE | 2017-06-17 | NUR ---
RN MIDSHIFT NOTES: PATIENT REMAINED NOT IN APPARENT DISTRESS ON BED,REMAINS SEDATED WELL. VS WNL AT THIS TIME. REPOSITIONED AND SKIN CARE RENDERED. TO CLOSELY MONITOR VITALS.
[2017-06-17] MEDS: IPRATROPIUM NEB FS 0.5 MG/2.5 ML AMPUL.NEB NEB SCH ×4 (01:25→19:51)
[2017-06-17] MEDS: BLOOD SUGAR DIAGNOSTIC 1 EACH STRIP IN SCH ×4 (05:16→23:16)
[2017-06-17] MEDS: methylPREDNISolone SOD SUCC 125 MG/2ML VIAL IV SCH ×3 (05:16→20:04)
[2017-06-17 05:19] LABS: HEMATOCRIT 35 % (39-51); HEMOGLOBIN 11.9 g/dL (13.5-17.5); LYMPHOCYTES # (AUTO) 0.4 /CMM (0.8-4.8); LYMPHOCYTES % (AUTO) 2.8 % (20.0-44.0); MEAN CORPUSCULAR HEMOGLOBIN 32 PG (26.0-33.0); MEAN CORPUSCULAR HGB CONC 34 g/dl (31.0-36.0); MEAN CORPUSCULAR VOLUME 95 fL (80-96); MONOCYTES # (AUTO) 0.4 /CMM (0.1-1.30); MONOCYTES % (AUTO) 2.8 % (2.0-12.0); NEUTROPHILS # (AUTO) 12.4 /CMM (1.8-8.9); NEUTROPHILS % (AUTO) 94.4 % (43.0-81.0); PLATELET COUNT (AUTO) 155 /CMM (150-450); RDW COEFFICIENT OF VARIATION 14.4 (11.5-15.0); WHITE BLOOD COUNT (AUTO) 13.1 K/uL (4.3-11.0)
[2017-06-17] MEDS: INSULIN REGULAR, HUMAN 100 UNIT/ML 3 ML VIAL SQ PRN ×4 (05:24→23:17)
[2017-06-17 05:42] LABS: CALCIUM, SERUM 8.2 mg/dL (8.5-10.1); CARBON DIOXIDE 26 mmol/L (21-32); CHLORIDE 117 mmol/L (98-107); CREATININE 1.9 mg/dL (0.6-1.3); GLUCOSE 283 mg/dL (74-106); MAGNESIUM 2.7 mg/dL (1.8-2.4); PHOSPHORUS 2.4 mg/dL (2.5-4.9); POTASSIUM 4.2 mmol/L (3.5-5.1); SODIUM SERUM 152 mmol/L (136-145)
[2017-06-17 05:44] LABS: UREA NITROGEN, BLOOD 87 mg/dL (7-18)
--- NOTE | 2017-06-17 06:45 | NUR ---
RN CLOSING NOTES: PATIENT RESTING IN BED. REMAINED SEDATED. VITALS REMAINED STABLE. NOT IN APPARENT DISTRESS. ETT INTACT AND OGT INTACT, MECH VENT SETTINGS REMAINED ORDERED. VPACING ON THE MONITOR; REMAINED ON VERSED AT 2MG/HR. SKIN CARE RENDERED. FC REMAINED INTACT, UO DOCUMENTED. FEEDING AT GOAL RATE TOLERATED WELL, NO NOTED RESIDUALS NOR VOMITING. ASPIRATION PRECAUTIONS ENSURED. SAFETY MEASURES ENSURED. CONTINUOUSLY MONITORED. TO ENDORSE TO AM SHIFT RN.
--- NOTE | 2017-06-17 08:00 | NUR ---
WHEEL OF FORTUNE DEALER RECEIVED PT SEDATED WITH VERSED DRIP. PT RESPONDS TO PAIN. TOLERATING GT FEEDINGS. ETT INTACT, CONNECTED TO VENT. PT ABLE TO ASSIST VENT.
[2017-06-17] MEDS: ASPIRIN 81 MG TAB.CHEW PO SCH (09:14)
[2017-06-17] MEDS: ATORVASTATIN 40 MG TABLET PO SCH (09:15)
[2017-06-17] MEDS: CARVEDILOL 12.5 MG TABLET PO SCH ×2 (09:15→20:04)
[2017-06-17] MEDS: PROSOURCE / PROSTAT (PYXIS) 30 ML UDC GT SCH ×2 (09:17→17:16)
[2017-06-17 09:39] LABS: ABG BASE EXCESS 1.8 mmol/L; ABG PCO2 39.9 mmHg (35.0-45.0); ABG PH 7.434 (7.350-7.450); ABG PO2 90.1 mmHg (75.0-100.0); AaDO2 149.2 mmHg; COHb 0.4 % (0.5-1.5); MetHb 0.2 % (0.0-1.5); O2Hb 95.7 % (94.0-97.0); PEEP,BG 5 cm H2O; SITE, ABG Right Radial; VT, ABG 500 mL
--- NOTE | 2017-06-17 10:00 | NUR ---
VOCATIONAL AIDE COMPLETED SEDATION VACATION. VERSED DRIP TURNED OFF. PT BECAME TACHYPNEIC ALMOST IMMEDIATELY AFTER MED TURNED OFF. DRIP RESTARTED.
--- NOTE | 2017-06-17 12:00 | NUR ---
MEDICAL RECORDS MANAGER SUCTIONED SMALL AMOUNT THICK WOO SECRETIONS. TOLERATING TF. ACCUCHECK DONE. GIVEN REG INSULIN FOR ACCUCHECK RESULT.
--- NOTE | 2017-06-17 14:00 | NUR ---
CASH REGISTER OPERATOR FAMILY IN TO SEE PT. UPDATE GIVEN. NO NEW C/O.
--- NOTE | 2017-06-17 16:00 | NUR ---
RD LAB TECHNICIAN TOLERATING TF WELL. SUCTIONED MODERATE AMOUNT THICK WOO SECRETIONS FROM ETT. REMAINS SEDATED.
[2017-06-17] MEDS: GLYTROL 1,000 ML BAG GT PRN (17:06)
[2017-06-17] MEDS: MIDAZOLAM HCL 100 MG in IV NS 0.9% 80 ML IV PRN (17:07)
[2017-06-17] MEDS: RIVAROXABAN 15 MG TABLET PO SCH (17:17)
--- NOTE | 2017-06-17 18:00 | NUR ---
CLINICAL NURSE OCCUPATIONAL MEDICINE PT REMAINED AFEBRILE, SEDATED ON VERSED DRIP. ACCUCHECKS>200 WITH AGGRESSIVE SCALE REGULAR INSULIN COVERAGE. SPO2 STABLE ON CURRENT VENT SETTINGS. FAMILY UPDATED.
--- NOTE | 2017-06-17 18:20 | NUR ---
RT NOTE: PATIENT RECEIVED ORALLY INTUBATED WITH 7.5 ETT TAPED AT 23 CM INNER LIP LINE. ETT MOVED FROM LEFT TO RIGHT SIDE OF MOUTH VIA ANCHOR FAST. BILAT SCATTERED RHONCHI THROUGHOUT LUNGS. SUCTIONED MODERATE TO LARGE AMOUNTS OF THICK WOO SECRETIONS. VENT PLUGGED INTO RED OUTLET. AMBU BAG AT [facility].
[2017-06-17] MEDS ORDERED: NEUTRA PHOS 1 POWD.PACKET GT ONE (18:30)
--- NOTE | 2017-06-17 19:53 | NUR ---
Received pt on vent support, pt is stable on current vent settings no sob or distress noted, alarms are on and audible, ventilator in plugged into red outlet , ambu bag at bedside. Addendum: 06/17/17 at 3 by TRESSA PERAZA RT Amended: Links added.
--- NOTE | 2017-06-17 20:00 | NUR ---
COMMERCIAL LAWN SPECIALIST - NOTES - RECEIVED PATIENT ON BED SEDATED WITH ONGOING VERSED AT 2MG/HR FOR SEDATION. INTUBATED WITH ETT 7.5/ 24 AT LIP, ON AC MODE, RATE 20, TV 500 FIO2 40% AND PEEP OF 5. V-PACING ON THE MONITOR HR IN THE 90'S. OGT INTACT, VERIFIED PLACEMENT VIA AUSCULTATION. MINIMAL RESIDUALS NOTED AT THIS POINT, GT FEEDING NOW AT 45 MLS/HR. IV ACCESS ON JERAMY PICC LINE, PATENT INTACT. GOOD CATH DRAINING TO A CLOSED SYSTEM, VIA GRAVITY. SAFETY MEASURES AND ASPIRATION PRECAUTIONS ENSURED. RESTRAINTS REMAINED INTACT. CONTINUOUSLY MONITORED.
[2017-06-18] VITALS (39 sets, daily range): BP systolic 94–147; BP diastolic 50–82
[2017-06-18] MEDS: IPRATROPIUM NEB FS 0.5 MG/2.5 ML AMPUL.NEB NEB SCH ×4 (01:07→19:49)
[2017-06-18] MEDS: methylPREDNISolone SOD SUCC 125 MG/2ML VIAL IV SCH (04:16)
[2017-06-18 05:37] LABS: HEMATOCRIT 34 % (39-51); HEMOGLOBIN 11.4 g/dL (13.5-17.5); LYMPHOCYTES # (AUTO) 0.5 /CMM (0.8-4.8); LYMPHOCYTES % (AUTO) 3.5 % (20.0-44.0); MEAN CORPUSCULAR HEMOGLOBIN 32 PG (26.0-33.0); MEAN CORPUSCULAR HGB CONC 34 g/dl (31.0-36.0); MEAN CORPUSCULAR VOLUME 94 fL (80-96); MONOCYTES # (AUTO) 0.9 /CMM (0.1-1.30); MONOCYTES % (AUTO) 5.9 % (2.0-12.0); NEUTROPHILS # (AUTO) 14.1 /CMM (1.8-8.9); NEUTROPHILS % (AUTO) 90.6 % (43.0-81.0); PLATELET COUNT (AUTO) 181 /CMM (150-450); RDW COEFFICIENT OF VARIATION 14.1 (11.5-15.0); RED BLOOD CELL COUNT(AUTO) 3.57 MIL/uL (4.5-6.0); WHITE BLOOD COUNT (AUTO) 15.5 K/uL (4.3-11.0)
[2017-06-18 06:02] LABS: CALCIUM, SERUM 8.5 mg/dL (8.5-10.1); CARBON DIOXIDE 27 mmol/L (21-32); CHLORIDE 117 mmol/L (98-107); CREATININE 1.9 mg/dL (0.6-1.3); GLUCOSE 277 mg/dL (74-106); MAGNESIUM 2.8 mg/dL (1.8-2.4); PHOSPHORUS 2.7 mg/dL (2.5-4.9); POTASSIUM 4.3 mmol/L (3.5-5.1); SODIUM SERUM 152 mmol/L (136-145)
[2017-06-18 06:04] LABS: UREA NITROGEN, BLOOD 104 mg/dL (7-18)
[2017-06-18] MEDS: BLOOD SUGAR DIAGNOSTIC 1 EACH STRIP IN SCH ×3 (06:15→18:01)
[2017-06-18] MEDS: INSULIN REGULAR, HUMAN 100 UNIT/ML 3 ML VIAL SQ PRN ×3 (06:17→18:00)
--- NOTE | 2017-06-18 07:10 | NUR ---
WATER PROOFER- INITIAL NOTE RECEIVED PT INTUBATED & SEDATED. PT ORALLY INTUBATED 7.5, 25 CM @ THE LIP. BEDSIDE MONITOR REVEALS V-PACING. BILATERAL SOFT WRIST RESTRAINTS IN PLACE. OGT PRESENT RUNNING GLYTROL @ 45 ML/HR. GOOD CATHETER PRESENT & DRAINING TO GRAVITY. RAC 20G AND JERAMY PICC LINE RUNNING VERSED GTT AT 2 MG/HR. SAFETY MEASURES TAKEN: BED LOCKED AND IN LOW POSITION, SIDE RAILS UP X2 AND BED ALARM ON, WILL CONTINUE TO MONITOR.
[2017-06-18] MEDS: GLYTROL 1,000 ML BAG GT PRN (08:33)
[2017-06-18] MEDS: ASPIRIN 81 MG TAB.CHEW PO SCH (08:33)
[2017-06-18] MEDS: CARVEDILOL 12.5 MG TABLET PO SCH ×2 (08:33→21:58)
[2017-06-18] MEDS: PROSOURCE / PROSTAT (PYXIS) 30 ML UDC GT SCH ×2 (08:33→17:58)
[2017-06-18] MEDS: ATORVASTATIN 40 MG TABLET PO SCH (08:33)
--- NOTE | 2017-06-18 08:35 | NUR ---
MECHANIC INDUSTRIAL TRUCK- SEDATION VACATION/ WEANING 0881- VERSED GTT TURNED OFF FOR SEDATION VACATION/ WEANING. PT PLACED ON SIMV MODE BY RT. PT DOES NOT OPEN EYES OR FOLLOW COMMANDS. 904- DR. OB AT BEDSIDE. PER , PLACE PT ON AC MODE AND ONCE PT WAKES UP, RETURN PATIENT TO SIMV MODE. PT STILL OFF VERSED. DOES NOT OPEN EYES OR FOLLOW COMMANDS.
--- NOTE | 2017-06-18 12:10 | NUR ---
SEWAGE DISPOSAL ENGINEER- DR. ALEX AT BEDSIDE. PER MD, START PT ON CVP MONITORING. MD AWARE PT HAS PICC LINE. ORDERS PLACED. WILL CONTINUE TO MONITOR.
[2017-06-18] MEDS: methylPREDNISolone SOD SUCC 40 MG/ML VIAL IV SCH ×2 (12:11→21:58)
[2017-06-18] MEDS ORDERED: LEVOFLOXACIN IV SCH (13:00)
[2017-06-18] MEDS ORDERED: [UNRECOGNIZED DRUG - OTHER] IV SCH (13:00)
--- NOTE | 2017-06-18 13:15 | NUR ---
HOTEL ATTENDANT- DR. BO AT BEDSIDE. PT STILL OFF VERSED GTT. PT DOES NOT OPEN EYES, DOES NOT FOLLOW COMMANDS AND IS TACHYPNEIC. MD ORDERED STAT CT HEAD, AMMONIA LEVELS AND TO PLACE PT BACK ON SEDATION. ONCE PT MORE COMFORTABLE, DO ABGS. ALL ORDERS PLACED. WILL CONTINUE TO MONITOR.
[2017-06-18 15:05] LABS: ABG BASE EXCESS 0.6 mmol/L; ABG OXYGEN SATURATION 95.2 % (92.0-98.5); ABG PCO2 36.3 mmHg (35.0-45.0); ABG PH 7.446 (7.350-7.450); ABG PO2 78.4 mmHg (75.0-100.0); AaDO2 165.1 mmHg; COHb 0.3 % (0.5-1.5); MetHb 0.5 % (0.0-1.5); O2Hb 94.4 % (94.0-97.0); PEEP,BG 0 cm H2O; SITE, ABG Right Radial; VT, ABG 500 mL
--- NOTE | 2017-06-18 15:25 | NUR ---
PROP MAKER- PT TAKEN TO CT FOR STAT CT HEAD WITH SABINE RT. PT TOLERATED WELL. WILL CONTINUE TO MONITOR.
--- NOTE | 2017-06-18 15:30 | NUR ---
RT NOTE: TAKEN TO CT AND BACK TO ICU VIA AMBU BAG. PLACED BACK ON PB 840 VENT. ALARMS VERIFIED AND AUDIBLE. VENT PLUGGED INTO RED OUTLET. AMBU BAG AT [facility].
[2017-06-18] MEDS: RIVAROXABAN 15 MG TABLET PO SCH (17:56)
[2017-06-18] MEDS: MIDAZOLAM HCL 100 MG in IV NS 0.9% 80 ML IV PRN (17:58)
--- NOTE | 2017-06-18 18:00 | NUR ---
RT NOTE: PATIENT RECEIVED ORALLY INTUBATED WITH 7.5 ETT SECURED AT 23 CM ON PB 840 VENT. ALARMS VERIFIED AND AUDIBLE. SUCTION AND LAVAGED MODERATE-LARGE THICK WOO SECRETIONS. PATIENT UNABLE TO WEAN THIS MORNING. WEANING CANCELLED PER . VENT PLUGGED INTO RED OUTLET. AMBU BAG AT [facility].
--- NOTE | 2017-06-18 19:30 | NUR ---
MEAL COOKER RCD PT W/DX RES FAIL; PT SEDATED ON VERSED AT 2 MG/HR. VPACING ON MONITOR. INTUBATED 7.5 @ 24 W/VENT SETTINGS AC 20 500 40% 5; THIN WHITE SECRETIONS NOTED. OG TUBE W/GLYTROL AT 45 ML/HR; NO RESIDUAL NOTED.
[2017-06-19] VITALS (34 sets, daily range): BP systolic 84–165; BP diastolic 48–97
[2017-06-19] MEDS: BLOOD SUGAR DIAGNOSTIC 1 EACH STRIP IN SCH ×5 (00:36→23:08)
--- NOTE | 2017-06-19 01:00 | NUR ---
COMMUNICATION EQUIPMENT REPAIRER PT NOTED WITH INCREASED RR; VERSED INCREASED TO 3 MG/HR.
[2017-06-19] MEDS: IPRATROPIUM NEB FS 0.5 MG/2.5 ML AMPUL.NEB NEB SCH ×4 (01:05→19:33)
[2017-06-19] MEDS: INSULIN REGULAR, HUMAN 100 UNIT/ML 3 ML VIAL SQ PRN ×4 (01:37→23:25)
--- NOTE | 2017-06-19 02:00 | NUR ---
FINISHING AREA OPERATOR COMPLETE BED BATH RENDERED TO PT; TOLERATED WELL.
--- NOTE | 2017-06-19 05:32 | NUR ---
RT NOTES: PATIENT ORALLY INTUBATED ON [facility] VENT WITH NOTED SETTINGS TOLERATED WELL. VENT ALARMS CHECKED + AUDIBLE. CUFF PRESSURE CHECKED BOAT OUTFITTING SUPERVISOR. SUCTIONED PRN WITH SMALL/MOD AMT PALE SEMI-THICK SECRETIONS. B/S DIM. BILAT. AMBU BAG AT [facility]. CONT CURRENT PLAN OF RESP CARE. NO DISTRESS/ ADVERSE EFFECTS NOTED ALL SHIFT. Addendum: 06/19/17 at 0532 by JAMIE ORNELAS RT Amended: Links added.
[2017-06-19] MEDS: methylPREDNISolone SOD SUCC 40 MG/ML VIAL IV SCH ×2 (05:45→12:50)
--- NOTE | 2017-06-19 07:16 | NUR ---
HEAD MILLER PT REMAINED ON VERSED AT 3 MG/HR.
[2017-06-19] MEDS: PROSOURCE / PROSTAT (PYXIS) 30 ML UDC GT SCH ×2 (08:33→17:22)
[2017-06-19] MEDS: ATORVASTATIN 40 MG TABLET PO SCH (08:34)
[2017-06-19] MEDS: GLYTROL 1,000 ML BAG GT PRN (08:34)
[2017-06-19] MEDS: CARVEDILOL 12.5 MG TABLET PO SCH ×2 (08:34→21:00)
[2017-06-19] MEDS: ASPIRIN 81 MG TAB.CHEW PO SCH (08:34)
[2017-06-19 08:38] LABS: BASOPHILS % (AUTO) 0.1 % (0.0-2.0); HEMATOCRIT 33 % (39-51); HEMOGLOBIN 11.2 g/dL (13.5-17.5); LYMPHOCYTES # (AUTO) 0.6 /CMM (0.8-4.8); LYMPHOCYTES % (AUTO) 3.6 % (20.0-44.0); MEAN CORPUSCULAR HEMOGLOBIN 32 PG (26.0-33.0); MEAN CORPUSCULAR HGB CONC 34 g/dl (31.0-36.0); MEAN CORPUSCULAR VOLUME 96 fL (80-96); MONOCYTES # (AUTO) 1.4 /CMM (0.1-1.30); MONOCYTES % (AUTO) 7.8 % (2.0-12.0); NEUTROPHILS # (AUTO) 15.6 /CMM (1.8-8.9); NEUTROPHILS % (AUTO) 88.5 % (43.0-81.0); PLATELET COUNT (AUTO) 192 /CMM (150-450); RDW COEFFICIENT OF VARIATION 14.9 (11.5-15.0); WHITE BLOOD COUNT (AUTO) 17.6 K/uL (4.3-11.0)
[2017-06-19 08:58] LABS: CALCIUM, SERUM 8.7 mg/dL (8.5-10.1); CARBON DIOXIDE 26 mmol/L (21-32); CHLORIDE 121 mmol/L (98-107); CREATININE 2.1 mg/dL (0.6-1.3); GLUCOSE 187 mg/dL (74-106); POTASSIUM 4.5 mmol/L (3.5-5.1)
--- NOTE | 2017-06-19 09:00 | NUR ---
ICU/RN: Sedation vacation: Pt off Versed since 0800 in am, no change in mental status, pt does not open eyes or follow commands. Dr Zuniga informed, per MD, "Keep sedation off unless he's in distress." Due meds administered through OGT. Checked for placement. Tolerating TF with 5cc residual.
[2017-06-19 09:06] LABS: UREA NITROGEN, BLOOD 115 mg/dL (7-18)
[2017-06-19 09:09] LABS: SODIUM SERUM 157 mmol/L (136-145)
--- NOTE | 2017-06-19 10:00 | NUR ---
ICU/RN: Dr Tirado and Dr Zion huffman. Updated on pt status - discussed kidney function and abn labs with MDs. Orders for IVF and free water flushes noted and carried out. Discussed with anxious and tearful daughter at bedside.
[2017-06-19] MEDS: LEVOFLOXACIN 250 MG /D5W 50 ML 250 MG in PREMIX 1 EA IV SCH ×3 (10:55→14:01)
[2017-06-19] MEDS: IV 1/2NS 1000 ML 1,000 ML IV PRN ×2 (10:55→22:56)
--- NOTE | 2017-06-19 12:30 | NUR ---
ICU/RN: Dr Zuniga at bedside; informed of pt increased RR and tachycardia. Ok to resume sedation per MD. Discussed CXR results and imaging reviewed, no need to advance ETT at this time.
--- NOTE | 2017-06-19 13:00 | NUR ---
ICU/RN: Complete bed bath and wound care rendered. Sacral and perineal excoriation noted, z-guard applied. Skin tear on R arm protected and noted. Wound consult requested.
[2017-06-19] MEDS: RIVAROXABAN 15 MG TABLET PO SCH (17:20)
[2017-06-19] MEDS: MIDAZOLAM HCL 100 MG in IV NS 0.9% 80 ML IV PRN (18:09)
--- NOTE | 2017-06-19 19:30 | NUR ---
CLIENT CARE REPRESENTATIVE: RECEIVED ORALLY INTUBATED PT AND TOLERATING VENT SETTINGS ORDERED. NO ACUTE DISTRESS, NO EVIDENCE OF DISCOMFORT. SEDATED ON VERSED DRIP AT 2MG/HR, WITHDRAWS TO LOCALIZED PAIN. V-PACING ON MIXER LEVER OPERATOR. AFEBRILE. TOLERATING 1/2 NS AT 75ML/HR, CVP READING= 6, NO S/S OF COMPLICATION ON JERAMY PICC LINE. OGT RUNNING GLYTROL AT 45CC/HR AND TOLERATING WELL WT 5CC RESIDUAL. F/C PATENT AND INTACT DRAINING CLOUDY YELLOW URINE TO GRAVITY. HOB ELEVATED AT 35 DEGREES. SAFETY PRECAUTION NOTED. WILL CONTINUE TO MONITOR.
--- NOTE | 2017-06-19 19:38 | NUR ---
PT REC'D INTUBATED WITH ETT TUBE 7.5 AT 23CM ON THE LIP. PT STABLE ON [facility] VENT SETTINGS NOTED. SX DONE, SMALL AMOUNT OF THICK WHITE/YELLOW. BS EQUAL AND COURSE. VENT PLUGGED INTO RED OUTLET. AMBU BAG AT BEDSIDE. WILL CONTINUE TO MONITOR FURTHER. Addendum: 06/19/17 at 1938 by MARCEL PANG RT Amended: Links added.
[2017-06-20] VITALS (36 sets, daily range): BP systolic 89–133; BP diastolic 56–80
--- NOTE | 2017-06-20 00:30 | NUR ---
SKID MACHINE OPERATOR: NO DAVID. REMAINED SEDATED ON VERSED AT 0.5MG/HR. REPOSITIONED FOR COMFORT. OGT FLUSHED WT FREE H20 ORDERED. WILL CONTINUE TO MONITOR.
[2017-06-20] MEDS: IPRATROPIUM NEB FS 0.5 MG/2.5 ML AMPUL.NEB NEB SCH ×4 (01:44→20:11)
--- NOTE | 2017-06-20 04:30 | NUR ---
FOREST OFFICER: BED BATH GIVEN AND TOLERATED FAIRLY.
[2017-06-20] MEDS: BLOOD SUGAR DIAGNOSTIC 1 EACH STRIP IN SCH ×4 (05:57→23:48)
[2017-06-20] MEDS: INSULIN REGULAR, HUMAN 100 UNIT/ML 3 ML VIAL SQ PRN ×4 (06:00→23:56)
--- NOTE | 2017-06-20 06:40 | NUR ---
GREEN MEAT GRADER: REMAINED SEDATED ON VERSED AT 1MG/HR. NO ACUTE DISTRESS, NO EVIDENCE OF DISCOMFORT. VS WITHIN HIS BASELINE.
--- NOTE | 2017-06-20 07:30 | NUR ---
ACID WASH OPERATOR RECEIVED PATIENT ON VERSED SEDATION AT 1 MG ON MECHANICAL VENTILATORY SUPPORT AT 98% SATURATION AFEBRILE ON GLYTROL AT 45ML/HR, RESIDUAL AT 10ML MONITORED CLOSELY WITH GOOD CATHETER DRAINING TO YELLOW URINE MODERATE IN AMOUNT
--- NOTE | 2017-06-20 07:39 | NUR ---
Male intubated pt received on AC mode. Pt ETT is secured at 23cm @ the lip. Vent is plugged into a red outlet, alarms are set and audible, and BVM is at bedside Addendum: 06/20/17 at 0741 by MARGY DE LEON RT Amended: Links added.
[2017-06-20] MEDS: CARVEDILOL 12.5 MG TABLET PO SCH ×2 (08:48→21:44)
[2017-06-20] MEDS: ATORVASTATIN 40 MG TABLET PO SCH (08:48)
[2017-06-20] MEDS: methylPREDNISolone SOD SUCC 40 MG/ML VIAL IV SCH (08:48)
[2017-06-20] MEDS: ASPIRIN 81 MG TAB.CHEW PO SCH (08:49)
[2017-06-20] MEDS: PROSOURCE / PROSTAT (PYXIS) 30 ML UDC GT SCH ×2 (08:49→17:23)
[2017-06-20 09:09] LABS: ABG BASE EXCESS -1.9 mmol/L; ABG OXYGEN SATURATION 97.1 % (92.0-98.5); ABG PCO2 39.4 mmHg (35.0-45.0); ABG PH 7.383 (7.350-7.450); ABG PO2 107.3 mmHg (75.0-100.0); AaDO2 132.6 mmHg; COHb 0.2 % (0.5-1.5); MetHb 0.2 % (0.0-1.5); O2Hb 96.7 % (94.0-97.0); PEEP,BG 5 cm H2O; SITE, ABG Left Radial; VENT MODE, BG AC 20 500 40% +5; VT, ABG 500 mL
[2017-06-20 10:44] LABS: BASOPHILS # (AUTO) 0.1 /CMM (0.0-0.2); BASOPHILS % (AUTO) 0.7 % (0.0-2.0); HEMATOCRIT 29 % (39-51); HEMOGLOBIN 9.9 g/dL (13.5-17.5); LYMPHOCYTES # (AUTO) 0.4 /CMM (0.8-4.8); LYMPHOCYTES % (AUTO) 2.9 % (20.0-44.0); MEAN CORPUSCULAR HEMOGLOBIN 32 PG (26.0-33.0); MEAN CORPUSCULAR HGB CONC 34 g/dl (31.0-36.0); MEAN CORPUSCULAR VOLUME 95 fL (80-96); MONOCYTES # (AUTO) 0.8 /CMM (0.1-1.30); MONOCYTES % (AUTO) 5.5 % (2.0-12.0); NEUTROPHILS # (AUTO) 13.7 /CMM (1.8-8.9); NEUTROPHILS % (AUTO) 90.9 % (43.0-81.0); PLATELET COUNT (AUTO) 176 /CMM (150-450); RDW COEFFICIENT OF VARIATION 14.7 (11.5-15.0); RED BLOOD CELL COUNT(AUTO) 3.07 MIL/uL (4.5-6.0)
--- NOTE | 2017-06-20 11:00 | NUR ---
MEAT SUPERVISOR GAVE REPORT TO ANMOL RAY NO OTHER UNTOWARD SYMPTOM SEEN ENDORSED TO NOD
[2017-06-20 11:08] LABS: ALANINE AMINOTRANSFERASE 216 U/L (12-78); ALBUMIN 1.5 g/dL (3.4-5.0); ALKALINE PHOSPHATASE 97 U/L (46-116); ASPARTATE AMINOTRANSFERASE 184 U/L (15-37); BILIRUBIN,TOTAL 0.2 mg/dL (0.2-1.0); CALCIUM, SERUM 8.1 mg/dL (8.5-10.1); CARBON DIOXIDE 26 mmol/L (21-32); CHLORIDE 117 mmol/L (98-107); GLUCOSE 264 mg/dL (74-106); POTASSIUM 4.9 mmol/L (3.5-5.1); SODIUM SERUM 151 mmol/L (136-145)
[2017-06-20 11:09] LABS: UREA NITROGEN, BLOOD 121 mg/dL (7-18)
--- NOTE | 2017-06-20 11:19 | NUR ---
ICU/RN: RECEIVED REPORT FROM SHAYLA RAY. PER CHARGE NURSE, CHANGE IN ASSIGNMENT. PT SEDATED ON 1MG VERSED. INTUBATED, ETT 7.5, 24 CM AT THE LIP. ON VENT SETTINGS ORDERED BY MD, NO ACUTE DISTRESS NOTED AT THIS TIME. RIGHT UPPER ARM PICC LINE PATENT INTACT, NO S/S OF INFECTION OR INFILTRATION NOTED. IV FLUIDS INFUSING ORDERED. PT ON TELE, V PACING. DAUGHTER OF PT AT BEDSIDE, UPDATES GIVEN. WILL CONTINUE CARE. SAFETY MEASURES TAKEN, BED IN LOW POSITION, SIDE RAILS UP, CALL LIGHT WITHIN REACH. WILL CONTINUE CARE.
[2017-06-20] MEDS: IV 1/2NS 1000 ML 1,000 ML IV PRN (12:42)
[2017-06-20] MEDS: GLYTROL 1,000 ML BAG GT PRN (12:44)
[2017-06-20] MEDS: RIVAROXABAN 15 MG TABLET PO SCH (17:24)
[2017-06-20] MEDS: MIDAZOLAM HCL 100 MG in IV NS 0.9% 80 ML IV PRN (17:25)
--- NOTE | 2017-06-20 18:14 | NUR ---
ICU/RN ENDING NOTES,AM REPORT WILL BE ENDORSED TO NIGHT NURSE FOR DAVID. ALL NEEDS ATTENDED TO. PT INTUBATED, ON VENT SETTINGS ORDERED. NO ACUTE RESP DISTRESS NOTED AT THIS TIME. ETT 7.5, 24CM AT THE LIP. PT V PACING ON TELE. SEDATED ON 1MG OF VERSED PER ORDERS. ALL NEEDS ATTENDED TO. FAMILY EDUCATED AND ALL QUESTIONS ANSWERED. GOOD DRAINING YELLOW URINE, G TUBE FEEDING INFUSING, TOLERATING WELL. PT TURNED AND REPOSITIONED, BATH, LINENS CHANGED. WILL ENDORSE FOR CONTINUATION OF CARE. IV FLUIDS ALSO INFUSING ORDERED.
--- NOTE | 2017-06-20 19:00 | NUR ---
DIRECTOR DIGITAL SALES: RECEIVED INTUBATED PT WT VENT SETTINGS ORDERED. 02 SAT 96% AND ABOVE. V-PACING ON MILLER HELPER WT HR IN LOW 100s. AFEBRILE. INCREASED VERSED RATE TO 2MG/HR, WITHDRAWS TO LOCALIZED PAIN. OGT RUNNING GLYTROL AT 45ML/HR WT 5CC RESIDUAL. JERAMY PICC LINE INFUSING 1/2 NS AT 75ML/HR WT F/C DRAINING ADEQUATE CLOUDY YELLOW URINE TO GRAVITY. HOB ELEVATED AT 35 DEGREES. WILL CONTINUE TO MONITOR.
--- NOTE | 2017-06-20 21:51 | NUR ---
PT RECEIVED ON VENT VIA CHARTED SETTINGS AND ROUTE. TOLERATING VENT SETTINGS. AMBU BAG AT BEDSIDE, ALARMS SET AND AUDIBLE. VENT PLUGGED INTO RED OUTLET. NO RESP DISTRESS NOTED. WILL CONTINUE TO MONITOR Addendum: 06/20/17 at 2152 by FRANCISCO BURTON RT Amended: Links added.
[2017-06-21] VITALS (35 sets, daily range): BP systolic 89–150; BP diastolic 48–87
--- NOTE | 2017-06-21 | NUR ---
METAL BONDING HELPER: NO DAVID. VS WITHIN HIS BASELINE. REPOSITIONED FOR COMFORT. FLUSH OGT WT FREE H20 ORDERED.
[2017-06-21] MEDS: IPRATROPIUM NEB FS 0.5 MG/2.5 ML AMPUL.NEB NEB SCH ×4 (02:19→19:59)
[2017-06-21] MEDS: IV 1/2NS 1000 ML 1,000 ML IV PRN ×2 (02:20→16:02)
--- NOTE | 2017-06-21 04:30 | NUR ---
MEAT PASSER: BED BATH GIVEN AND TOLERATED FAIRLY. GOOD SKIN CARE RENDERED.
[2017-06-21] MEDS: BLOOD SUGAR DIAGNOSTIC 1 EACH STRIP IN SCH ×3 (06:15→17:09)
[2017-06-21] MEDS: INSULIN REGULAR, HUMAN 100 UNIT/ML 3 ML VIAL SQ PRN ×3 (06:17→17:17)
--- NOTE | 2017-06-21 06:40 | NUR ---
DIE CLEANER: NO DAVID. REMAINED 100% V-PACED ON WATER QUALITY MANAGER. SEDATED ON VERSED AT 1MG/HR. VS WITHIN PATIENT'S BASELINE. ASPIRATION AND SAFETY PRECAUTION NOTED AT ALL TIMES.
--- NOTE | 2017-06-21 07:45 | NUR ---
ICU/RN - Initial Notes Received pt in sedated, on Versed gtt. Orally intubated to mechanical vent with settings as ordered. No s/s of pain or discomfort. Vpacing on tele monitor. OG tube intact, tolerating tube feedings well. Nance catheter intact draining urine to gravity. CVP readings monitored. Safety and comfort measures in place. Will continue to monitor pt closely.
[2017-06-21 08:18] LABS: BASOPHILS % (AUTO) 0.1 % (0.0-2.0); HEMATOCRIT 28 % (39-51); HEMOGLOBIN 9.7 g/dL (13.5-17.5); LYMPHOCYTES # (AUTO) 0.4 /CMM (0.8-4.8); LYMPHOCYTES % (AUTO) 3.1 % (20.0-44.0); MEAN CORPUSCULAR HEMOGLOBIN 32 PG (26.0-33.0); MEAN CORPUSCULAR HGB CONC 34 g/dl (31.0-36.0); MEAN CORPUSCULAR VOLUME 95 fL (80-96); MONOCYTES # (AUTO) 0.9 /CMM (0.1-1.30); MONOCYTES % (AUTO) 6.5 % (2.0-12.0); NEUTROPHILS # (AUTO) 12.6 /CMM (1.8-8.9); NEUTROPHILS % (AUTO) 90.3 % (43.0-81.0); PLATELET COUNT (AUTO) 180 /CMM (150-450); RDW COEFFICIENT OF VARIATION 14.6 (11.5-15.0); RED BLOOD CELL COUNT(AUTO) 2.99 MIL/uL (4.5-6.0); WHITE BLOOD COUNT (AUTO) 13.9 K/uL (4.3-11.0)
[2017-06-21] MEDS: ATORVASTATIN 40 MG TABLET PO SCH (08:22)
[2017-06-21] MEDS: methylPREDNISolone SOD SUCC 40 MG/ML VIAL IV SCH (08:23)
[2017-06-21] MEDS: ASPIRIN 81 MG TAB.CHEW PO SCH (08:23)
[2017-06-21] MEDS: PROSOURCE / PROSTAT (PYXIS) 30 ML UDC GT SCH ×2 (08:23→16:02)
[2017-06-21] MEDS: CARVEDILOL 12.5 MG TABLET PO SCH ×2 (08:23→21:11)
[2017-06-21 08:26] LABS: CALCIUM, SERUM 8.2 mg/dL (8.5-10.1); CARBON DIOXIDE 23 mmol/L (21-32); CHLORIDE 116 mmol/L (98-107); GLUCOSE 252 mg/dL (74-106); SODIUM SERUM 149 mmol/L (136-145)
[2017-06-21 08:32] LABS: UREA NITROGEN, BLOOD 118 mg/dL (7-18)
[2017-06-21] MEDS: LEVOFLOXACIN 250 MG /D5W 50 ML 250 MG in PREMIX 1 EA IV SCH ×3 (10:18→12:19)
--- NOTE | 2017-06-21 10:35 | NUR ---
ICU/RN - Notes Versed titrated off at 0815 for sedation vacation. Restraints placed for safety for risk of self extubation. At this time, pt unresponsive, appears in no distress on ventilator. Dr Zuniga at bedside for evaluation, updated on plan of care. Per Dr Zuniga "Leave patient off sedation as long as he is not in distress." Pt's grandson at bedside. Will continue to monitor pt.
[2017-06-21] MEDS: GLYTROL 1,000 ML BAG GT PRN (11:24)
--- NOTE | 2017-06-21 13:07 | NUR ---
ICU/RN - Notes Restraints released at this time as patient's daughter is at bedside. At this time, patient is still unresponsive off sedation, appears in no distress although tachypneic with RR 26.
[2017-06-21] MEDS: RIVAROXABAN 15 MG TABLET PO SCH (16:09)
--- NOTE | 2017-06-21 18:11 | NUR ---
ICU/RN - Notes At this time, patient is still unresponsive off sedation, appears in no distress although tachypneic with RR 29. Family at bedside.
--- NOTE | 2017-06-21 18:42 | NUR ---
RT END OF THE SHIFT REPORT PT. 40 Y OLD FEMALE REMAIN ORALLY INTUBATED ETT# 7.5 @23 VENT WITH NOTED SIMV SETTINGS, ALARMS ARE SET AND FUNCTIONAL. B/S RALES/ RHONCHI. BILATERALLY AND EQUAL CHEST RISE NOTED SUX'D FOR MODERATE AMT OF YELLOWISH SECRETIONS. VENT PLUGGED INTO RED OUTLET AND NO DISTRESS NOTED T/O SHIFT HME CHANGED AND AMBU BAG REMAIN AT THE BEDSIDE. REPORT WILL BE PASS TO PM SHIFT. Addendum: 06/21/17 at 1843 by SALTY JIMENEZ RT PT. 86 Y OLD MALE Addendum: 06/21/17 at 1844 by SALTY JIMENEZ RT Amended: Links added.
--- NOTE | 2017-06-21 20:00 | NUR ---
NETWORK COORDINATOR - notes - Received pt in bed, no sedation, eyes closed, not following commands. Orally intubated to mechanical vent with settings as ordered. No s/s of pain or discomfort. V-pacing on tele monitor. OG tube intact, tolerating tube feedings well. Nance catheter intact draining urine to gravity. CVP readings monitored. Safety and comfort measures in place. Will continue to monitor pt closely.
--- NOTE | 2017-06-21 21:00 | NUR ---
pt opening eyes spontaneously, still lethargic and not looking at me, looking around the room. not following commands yet, went back to sleep
[2017-06-22] VITALS (35 sets, daily range): BP systolic 103–139; BP diastolic 62–88
[2017-06-22] MEDS: INSULIN REGULAR, HUMAN 100 UNIT/ML 3 ML VIAL SQ PRN ×4 (00:01→18:17)
[2017-06-22] MEDS: IPRATROPIUM NEB FS 0.5 MG/2.5 ML AMPUL.NEB NEB SCH ×4 (02:16→20:19)
[2017-06-22] MEDS: BLOOD SUGAR DIAGNOSTIC 1 EACH STRIP IN SCH ×4 (05:37→17:47)
[2017-06-22 05:38] LABS: BASOPHILS % (AUTO) 0.1 % (0.0-2.0); HEMATOCRIT 29 % (39-51); HEMOGLOBIN 9.6 g/dL (13.5-17.5); LYMPHOCYTES # (AUTO) 0.6 /CMM (0.8-4.8); MEAN CORPUSCULAR HEMOGLOBIN 32 PG (26.0-33.0); MEAN CORPUSCULAR HGB CONC 34 g/dl (31.0-36.0); MEAN CORPUSCULAR VOLUME 95 fL (80-96); MONOCYTES # (AUTO) 1.3 /CMM (0.1-1.30); MONOCYTES % (AUTO) 8.7 % (2.0-12.0); NEUTROPHILS # (AUTO) 13.1 /CMM (1.8-8.9); NEUTROPHILS % (AUTO) 87.2 % (43.0-81.0); PLATELET COUNT (AUTO) 197 /CMM (150-450); RDW COEFFICIENT OF VARIATION 14.2 (11.5-15.0)
[2017-06-22] MEDS: IV 1/2NS 1000 ML 1,000 ML IV PRN (05:39)
[2017-06-22 05:52] LABS: CALCIUM, SERUM 8.1 mg/dL (8.5-10.1); CARBON DIOXIDE 24 mmol/L (21-32); CHLORIDE 114 mmol/L (98-107); CREATININE 1.8 mg/dL (0.6-1.3); GLUCOSE 186 mg/dL (74-106); MAGNESIUM 2.5 mg/dL (1.8-2.4); PHOSPHORUS 3.9 mg/dL (2.5-4.9); POTASSIUM 4.7 mmol/L (3.5-5.1); SODIUM SERUM 147 mmol/L (136-145)
[2017-06-22 05:55] LABS: UREA NITROGEN, BLOOD 114 mg/dL (7-18)
--- NOTE | 2017-06-22 07:45 | NUR ---
ICU/RN PT IS INTUBATED ON THE VENT AC MODE.FIO2-40%. SATO2-100%.V/S STABLE,AFEBRILE.NO PAIN REPORTED AT THIS TIME.PT IS OFF SEDATION .OPEN EYES ON PAIN STIMULATION. VERY WEAK.PICC LINE ON THE RIGHT UPPER ARM.IV INFUSING ORDERED.CVP-7.F/C DRAINING WITH YELLOW URINE.OG TUBE INFUSING WITH GLYTROL NO RESIDUAL NOTED.LABS REVIEW.MD NOTIFIED.SUCTION PROVIDED.REPOSITION FOR COMFORT.
--- NOTE | 2017-06-22 07:59 | NUR ---
WOUND CARE CONSULT: PT SEEN FOR RT ARM SKIN TEAR. RECOMMENDATIONS MADE AND DISCUSSED WITH NURSING STAFF. DEFER TO PLASTICS SURGICAL TEAM FOR ALL OTHER SKIN AND WOUND TREATMENT PLAN. PT ON [place] ISOFLEX LOW AIRLOSS BED. ALL SKIN PROTECTION MEASURES IN PLACE. MD IN AGREEMENT WITH PLAN OF CARE. Addendum: 06/22/17 at 0801 by ANTONIETA FLORES WNDNU Amended: Links added.
[2017-06-22] MEDS: PROSOURCE / PROSTAT (PYXIS) 30 ML UDC GT SCH ×2 (08:36→17:45)
[2017-06-22] MEDS: ATORVASTATIN 40 MG TABLET PO SCH (08:37)
[2017-06-22] MEDS: methylPREDNISolone SOD SUCC 40 MG/ML VIAL IV SCH (08:37)
[2017-06-22] MEDS: ASPIRIN 81 MG TAB.CHEW PO SCH (08:37)
[2017-06-22] MEDS: CARVEDILOL 12.5 MG TABLET PO SCH ×2 (08:38→20:20)
--- NOTE | 2017-06-22 09:00 | NUR ---
ICU/RN DUE MEDS ARE GIVEN ORDERED.
[2017-06-22] MEDS: GLYTROL 1,000 ML BAG GT PRN (10:43)
[2017-06-22] MEDS: RIVAROXABAN 15 MG TABLET PO SCH (17:46)
--- NOTE | 2017-06-22 20:00 | NUR ---
SOLID GLASS ROD DOWEL MACHINE OPERATOR - notes - Received pt in bed, no sedation, opens eyes spontaneously, not tracking, not following commands. Orally intubated to mechanical vent with settings as ordered. No s/s of pain or discomfort. V-pacing on tele monitor. OG tube intact, tolerating tube feedings well. Nance catheter intact draining urine to gravity. CVP readings monitored. Safety and comfort measures in place. Will continue to monitor pt closely.
--- NOTE | 2017-06-22 20:55 | NUR ---
PT RECEIVED INTUBATED WITH 7.5 ETT SECURED AT 23CM AT THE LIP. NO RESP DISTRESS NOTED. PT IS AWAKE OFF SEDATION. TOLERATING VENT SETTINGS. SX'D FOR MOD AMT OF THICK WOO SECRETIONS. VENT ALARMS SET AND AUDIBLE. AMBU BAG AT BEDSIDE. VENT PLUGGED INTO RED OUTLET. WILL CONTINUE TO MONITOR. Addendum: 06/22/17 at 2057 by WIMLA SEXTON RT Amended: Links added.
[2017-06-23] VITALS (35 sets, daily range): BP systolic 106–141; BP diastolic 62–84
[2017-06-23] MEDS: INSULIN REGULAR, HUMAN 100 UNIT/ML 3 ML VIAL SQ PRN ×4 (00:26→17:14)
[2017-06-23] MEDS: BLOOD SUGAR DIAGNOSTIC 1 EACH STRIP IN SCH ×4 (00:27→17:09)
[2017-06-23] MEDS: IPRATROPIUM NEB FS 0.5 MG/2.5 ML AMPUL.NEB NEB SCH ×4 (01:09→19:26)
--- NOTE | 2017-06-23 01:10 | NUR ---
PT RCVD INTUBATED WITH ETT 7.5 AT 23 CM ON THE LIP. PT STABLE ON CURRENT [facility] VENT SETTINGS OF AC 20,500,40%,+5 SUCTIONED MODERATE AMOUNT OF THICK YELLOW WOO SECRETIONS. EQUAL BILATERAL BS NOTED . VENT ALARM WORKING AND AUDIBLE, VENT PLUGGED INTO RED OUTLET. AMBU BAG AT BEDSIDE. WILL CONTINUE TO MONITOR THE PATIENT.
--- NOTE | 2017-06-23 07:54 | NUR ---
ICU/RN: INITIAL NOTES,AM RECEIVED REPORT FROM NIGHT NURSE. PT COMPLETELY OFF SEDATION, RESPONDS TO SOME PAINFUL STIMULI, DOES NOT FOLLOW COMMANDS, OPENS EYES HOWEVER, DOES NOT TRACK. PT INTUBATED, ETT 7.5, 24 CM AT THE LIP. ON VENT SETTINGS ORDERED BY MD, NO ACUTE DISTRESS NOTED AT THIS TIME. RIGHT UPPER ARM PICC LINE PATENT INTACT, NO S/S OF INFECTION OR INFILTRATION NOTED. PT ON TELE, V PACING. SAFETY MEASURES TAKEN, BED IN LOW POSITION, SIDE RAILS UP, CALL LIGHT WITHIN REACH. WILL CONTINUE CARE.
[2017-06-23 08:04] LABS: HEMATOCRIT 26 % (39-51); HEMOGLOBIN 9.1 g/dL (13.5-17.5); LYMPHOCYTES # (AUTO) 0.8 /CMM (0.8-4.8); LYMPHOCYTES % (AUTO) 5.4 % (20.0-44.0); MEAN CORPUSCULAR HEMOGLOBIN 32 PG (26.0-33.0); MEAN CORPUSCULAR HGB CONC 34 g/dl (31.0-36.0); MEAN CORPUSCULAR VOLUME 94 fL (80-96); MONOCYTES # (AUTO) 1.2 /CMM (0.1-1.30); MONOCYTES % (AUTO) 8.4 % (2.0-12.0); NEUTROPHILS # (AUTO) 12.1 /CMM (1.8-8.9); NEUTROPHILS % (AUTO) 86.2 % (43.0-81.0); PLATELET COUNT (AUTO) 183 /CMM (150-450); RED BLOOD CELL COUNT(AUTO) 2.82 MIL/uL (4.5-6.0); WHITE BLOOD COUNT (AUTO) 14.1 K/uL (4.3-11.0)
[2017-06-23 08:17] LABS: CALCIUM, SERUM 8.1 mg/dL (8.5-10.1); CARBON DIOXIDE 23 mmol/L (21-32); CHLORIDE 117 mmol/L (98-107); CREATININE 1.7 mg/dL (0.6-1.3); GLUCOSE 189 mg/dL (74-106); POTASSIUM 4.6 mmol/L (3.5-5.1); SODIUM SERUM 149 mmol/L (136-145); UREA NITROGEN, BLOOD 109 mg/dL (7-18)
[2017-06-23] MEDS: methylPREDNISolone SOD SUCC 40 MG/ML VIAL IV SCH (09:41)
[2017-06-23] MEDS: ATORVASTATIN 40 MG TABLET PO SCH (09:41)
[2017-06-23] MEDS: PROSOURCE / PROSTAT (PYXIS) 30 ML UDC GT SCH ×2 (09:42→17:09)
[2017-06-23] MEDS: CARVEDILOL 12.5 MG TABLET PO SCH ×2 (09:42→21:24)
[2017-06-23] MEDS: ASPIRIN 81 MG TAB.CHEW PO SCH (09:42)
[2017-06-23] MEDS: LEVOFLOXACIN 750 MG /D5W 150ML 750 MG in PREMIX 1 EA IV SCH (12:30)
[2017-06-23] MEDS: RIVAROXABAN 15 MG TABLET PO SCH (17:11)
[2017-06-23] MEDS: GLYTROL 1,000 ML BAG GT PRN (17:40)
--- NOTE | 2017-06-23 17:50 | NUR ---
RT END OF THE SHIFT REPORT PT. 86 Y OLD MALE REMAIN ORALLY INTUBATED ETT# 7.5 @23 VENT WITH NOTED AC SETTINGS, ALARMS ARE SET AND FUNCTIONAL. B/S RALES/ RHONCHI. BILATERALLY AND EQUAL CHEST RISE NOTED SUX'D FOR MODERATE AMT OF YELLOWISH SECRETIONS. VENT PLUGGED INTO RED OUTLET AND NO DISTRESS NOTED T/O SHIFT HME CHANGED AND AMBU BAG REMAIN AT THE BEDSIDE. REPORT WILL PASS TO PM SHIFT. Addendum: 06/23/17 at 1751 by SALTY JIMENEZ RT Amended: Links added.
--- NOTE | 2017-06-23 19:42 | NUR ---
ICU/RN ENDING NOTES,AM REPORT ENDORSED TO NIGHT NURSE FOR DAVID. ALL NEEDS ATTENDED TO. PT INTUBATED, ON VENT SETTINGS ORDERED. NO ACUTE RESP DISTRESS NOTED AT THIS TIME. ETT 7.5, 24CM AT THE LIP. PT V PACING ON TELE. ALL NEEDS ATTENDED TO. FAMILY EDUCATED AND ALL QUESTIONS ANSWERED. GOOD DRAINING YELLOW URINE, G TUBE FEEDING INFUSING PT TURNED AND REPOSITIONED, BATH, LINENS CHANGED. WILL ENDORSE FOR CONTINUATION OF CARE. IV FLUIDS ALSO INFUSING ORDERED.
--- NOTE | 2017-06-23 19:45 | NUR ---
ICU/SENIOR CONTROL SYSTEMS ENGINEER RECEIVED REPORT FROM DAY NURSE. PT IS ORALLY INTUBATED, TOLERATING CURRENT VENT SETTINGS. SATURATION IS 99-100%. PT HAS NO SEDATION, PT WILL RESPOND TO VERBAL COMMAND. PT IS V-PACING ON THE MONITOR. PT HAS N/G TUBE FEEDINGS WITH SOME RESIDUALS THAT ARE NOTED. PT HAS A FEW SKIN ISSUES THAT ARE DOCUMENTED ON THE FLOW SHEET. PT WAS TURNED AND REPOSITIONED FOR COMFORT AND CARE.
--- NOTE | 2017-06-23 20:00 | NUR ---
RT RECEIVED PT [facility] WITH NOTED SETTINGS. ETT 7.5 MARKED 23CM @ THE LIP. WELFARE ELIGIBILITY WORKER DONE AND ETT SECURE W/ ANCHOR FAST. BILATERAL B/S. VENTS ALARMS CHECKED AND AUDIBLE. VENT PLUGGED IN RED OUTLET. SX WITH MOD THK WOO SECRETIONS. AMBU BAG NOTED AT THE HOB. NO RESP DISTRESS NOTED AT THIS TIME WILL CONTINUE TO MONITOR T/O SHIFT.
[2017-06-24] VITALS (36 sets, daily range): BP systolic 94–146; BP diastolic 49–78
--- NOTE | 2017-06-24 00:20 | NUR ---
ICU/CHIEF OF SURGERY ACCU CHECK WAS DONE, BLOOD SUGAR IS 292 WHICH WAS COVERED WITH AN AGGRESSIVE SCALE. WILL CONTINUE TO MONITOR PTS SUGAR. PT WAS TURNED AND REPOSITIONED FOR COMFORT AND CARE
--- NOTE | 2017-06-24 00:55 | NUR ---
ICU/GLUCOSE AND SYRUP WEIGHER RESIDUALS WERE CHECKED, THERE WAS OVER 260ML OF FEEDING. FEEDING WAS TURNED OFF. WILL RECHECK FEEDING RESIDUALS AT A LATER TIME.
[2017-06-24] MEDS: BLOOD SUGAR DIAGNOSTIC 1 EACH STRIP IN SCH ×4 (00:56→17:56)
[2017-06-24] MEDS: INSULIN REGULAR, HUMAN 100 UNIT/ML 3 ML VIAL SQ PRN ×2 (00:59→05:47)
[2017-06-24] MEDS: IPRATROPIUM NEB FS 0.5 MG/2.5 ML AMPUL.NEB NEB SCH ×4 (01:27→19:19)
--- NOTE | 2017-06-24 02:15 | NUR ---
ICU/MOP WORKER PT WAS GIVEN AM CARE, ALONG WITH ORAL CARE. PT TOLERATED THIS WELL. REMAINS ON CURRENT VENT SETTINGS. SATURATION IS 100%. PT WAS THEN TURNED AND REPOSITIONED FOR COMFORT AND CARE.
--- NOTE | 2017-06-24 03:45 | NUR ---
ICU/COGNOS RT AT BEDSIDE, PT'S ETT TUBE WAS RE-TAPED. PT TOLERATED THIS WELL. REMAINS ON CURRENT VENT SETTINGS.
[2017-06-24 04:58] LABS: HEMATOCRIT 26 % (39-51); HEMOGLOBIN 8.9 g/dL (13.5-17.5); LYMPHOCYTES # (AUTO) 0.6 /CMM (0.8-4.8); LYMPHOCYTES % (AUTO) 4.2 % (20.0-44.0); MEAN CORPUSCULAR HEMOGLOBIN 33 PG (26.0-33.0); MEAN CORPUSCULAR HGB CONC 35 g/dl (31.0-36.0); MEAN CORPUSCULAR VOLUME 95 fL (80-96); MONOCYTES # (AUTO) 0.9 /CMM (0.1-1.30); MONOCYTES % (AUTO) 6.1 % (2.0-12.0); NEUTROPHILS # (AUTO) 12.7 /CMM (1.8-8.9); NEUTROPHILS % (AUTO) 89.7 % (43.0-81.0); PLATELET COUNT (AUTO) 188 /CMM (150-450); RDW COEFFICIENT OF VARIATION 14.2 (11.5-15.0); RED BLOOD CELL COUNT(AUTO) 2.73 MIL/uL (4.5-6.0); WHITE BLOOD COUNT (AUTO) 14.1 K/uL (4.3-11.0)
[2017-06-24 05:17] LABS: CALCIUM, SERUM 8.4 mg/dL (8.5-10.1); CARBON DIOXIDE 26 mmol/L (21-32); CHLORIDE 119 mmol/L (98-107); CREATININE 1.8 mg/dL (0.6-1.3); GLUCOSE 236 mg/dL (74-106); MAGNESIUM 2.4 mg/dL (1.8-2.4); POTASSIUM 4.8 mmol/L (3.5-5.1); SODIUM SERUM 152 mmol/L (136-145); UREA NITROGEN, BLOOD 110 mg/dL (7-18)
--- NOTE | 2017-06-24 07:22 | NUR ---
ICU/RN: INITIAL NOTES,AM RECEIVED REPORT FROM NIGHT NURSE. RESPONDS TO SOME PAINFUL STIMULI, DOES NOT FOLLOW COMMANDS, OPENS EYES DOES NOT TRACK. PT INTUBATED, ETT 7.5, 24 CM AT THE LIP. ON VENT SETTINGS ORDERED BY MD, NO ACUTE DISTRESS NOTED AT THIS TIME. RIGHT UPPER ARM PICC LINE PATENT INTACT, NO S/S OF INFECTION OR INFILTRATION NOTED. OG TUBE FEEING HELD DUE TO HIGH RESIDUAL, WILL REASSESS. PT ON TELE, V PACING. SAFETY MEASURES TAKEN, BED IN LOW POSITION, SIDE RAILS UP, CALL LIGHT WITHIN REACH. WILL CONTINUE CARE.
--- NOTE | 2017-06-24 08:00 | NUR ---
ICU/RN: PER MD ORDER PT PLACED ON CPAP MODE. WILL CONTINUE TO MONITOR AND ASSESS
[2017-06-24] MEDS: ATORVASTATIN 40 MG TABLET PO SCH (08:14)
[2017-06-24] MEDS: ASPIRIN 81 MG TAB.CHEW PO SCH (08:15)
[2017-06-24] MEDS: CARVEDILOL 12.5 MG TABLET PO SCH ×2 (08:15→20:19)
[2017-06-24] MEDS: PROSOURCE / PROSTAT (PYXIS) 30 ML UDC GT SCH ×2 (08:17→17:56)
[2017-06-24 10:23] LABS: ABG BASE EXCESS -2.6 mmol/L; ABG OXYGEN SATURATION 97.8 % (92.0-98.5); ABG PCO2 31.7 mmHg (35.0-45.0); ABG PH 7.445 (7.350-7.450); ABG PO2 132.9 mmHg (75.0-100.0); AaDO2 115.8 mmHg; COHb 1.3 % (0.5-1.5); MetHb 1.3 % (0.0-1.5); O2Hb 95.3 % (94.0-97.0); PEEP,BG 5 cm H2O; SITE, ABG Left Radial
[2017-06-24] MEDS: IV D5W 1,000 ML IV PRN (10:23)
--- NOTE | 2017-06-24 12:30 | NUR ---
ICU/RN: MD ROUNDS PT SEEN AND ASSESSED BY MDS, NEW ORDERS RECEIVED, WILL FOLLOW THROUGH. PT TOLERATING CPAP. WILL CONTINUE TO MONITOR
--- NOTE | 2017-06-24 16:00 | NUR ---
ICU/RN: AFTER LONG DISCUSSION WITH SON AND DAUGHTER OF PT, DECISION WAS MADE TO EXTUBATE PT THURSDAY THEN CHANGE HIS CODE STATUS TO DNR/DNI. PT TOLERATED CPAP WELL, HOWEVER, THEY WANT TO WAIT TO EXTUBATE. PER PT WILL BE PLACED ON AC SETTINGS ORDERED. WILL FOLLOW THROUGH.
[2017-06-24] MEDS: RIVAROXABAN 15 MG TABLET PO SCH (17:58)
[2017-06-24] MEDS: GLYTROL 1,000 ML BAG GT PRN (17:58)
--- NOTE | 2017-06-24 18:00 | NUR ---
RT NOTE: PATIENT RECEIVED ORALLY INTUBATED WITH 7.5 ETT SECURED AT 23 CM MID LIP LINE ON A PB 840 VENT. MOVED ETT FROM RIGHT TO LEFT SIDE OF THE MOUTH VIA ANCHOR FAST. ALARMS VERIFIED AND AUDIBLE. SUCTIONED AND LAVAGED MOD-LARGE AMOUNT OF THICK WOO SECRETIONS. VENT PLUGGED INTO RED OUTLET. AMBU BAG AT [facility].
--- NOTE | 2017-06-24 18:52 | NUR ---
ICU/RN ENDING NOTES,AM REPORT WILL BE ENDORSED TO NIGHT NURSE FOR CONTINUATION OF CARE. ALL NEEDS MET. PT ON VENT SETTINGS ORDERED, NO DISTRESS. IV FLUIDS INFUSING ORDERED. PT BATHE, LINENS CHANGED, TURNED AND REPOSITIONED. ALL SAFETY MEASURES TAKEN, BED IN LOW POSITION, SIDE RAILS UP, CALL LIGHT WITHIN REACH.
--- NOTE | 2017-06-24 20:00 | NUR ---
RT RECEIVED PT [facility] WITH NOTED SETTINGS. ETT 7.5 MARKED 23CM @ THE LIP. GUEST SPECIALIST DONE AND ETT SECURE W/ ANCHOR FAST. BILATERAL B/S. VENTS ALARMS CHECKED AND AUDIBLE. VENT PLUGGED IN RED OUTLET. SX WITH MOD THK WOO SECRETIONS. AMBU BAG NOTED AT THE HOB. NO RESP DISTRESS NOTED AT THIS TIME WILL CONTINUE TO MONITOR T/O SHIFT
--- NOTE | 2017-06-24 21:49 | NUR ---
RN INITIAL NOTE RECEIVED PT IN NO ACUTE DISTRESS IN BED. PT IS A/O X 1 AND TRACKS WHEN PT'S NAME IS CALLED. PT IS ON MECHANICAL VENT VIA ETT. ETT IS 7.5/ 24 AT THE LIP. PT TOLERATING VENT SETTING WELL WITH O2 SAT @ 100%. PT HAS OG TUBE THAT IS CLEAN DRY INTACT AND PATENT WITH FREE WATER FLUSH. PT IS ON GLYTROL FEEDING @ 45ML/HR. PT HAS HIGH RESIDUAL @ 150ML. WILL HOLD FEEDING AND RECHECK. IF RESIDUAL ARE LOW, WILL RESTART FEEDING. PT IS ON TELE WITH 100% V PACING ON THE MONITOR. PT HAS PACEMAKER ON LEFT UPPER CHEST WALL. PT HAS F/C THAT IS CLEAN DRY INTACT AND PATENT WITH YELLOW URINE DRAINING. PT HAS JERAMY PICC THAT IS CLEAN DRY INTACT AND PATENT WITH D5W @ 50ML/HR. BED IN LOW LOCK POSITION WITH RAILS UP X 2. CALL LIGHT WITHIN REACH AND ALL SAFETY MEASURES ENSURED AND CARRIED OUT. WILL CONTINUE TO MONITOR PT.
--- NOTE | 2017-06-24 22:00 | NUR ---
RN NOTE RECHECKED RESIDUAL AND PT HAS 0 RESIDUAL. RESTARTED FEEDING. WILL CONTINUE TO MONITOR
[2017-06-25] VITALS (38 sets, daily range): BP systolic 92–153; BP diastolic 47–78
[2017-06-25] MEDS: BLOOD SUGAR DIAGNOSTIC 1 EACH STRIP IN SCH ×4 (00:02→17:43)
[2017-06-25] MEDS: IPRATROPIUM NEB FS 0.5 MG/2.5 ML AMPUL.NEB NEB SCH ×4 (01:15→20:08)
[2017-06-25] MEDS: INSULIN REGULAR, HUMAN 100 UNIT/ML 3 ML VIAL SQ PRN ×3 (05:20→17:47)
[2017-06-25 05:53] LABS: BASOPHILS % (AUTO) 0.1 % (0.0-2.0); HEMATOCRIT 25 % (39-51); HEMOGLOBIN 8.7 g/dL (13.5-17.5); LYMPHOCYTES # (AUTO) 0.9 /CMM (0.8-4.8); LYMPHOCYTES % (AUTO) 7.8 % (20.0-44.0); MEAN CORPUSCULAR HEMOGLOBIN 32 PG (26.0-33.0); MEAN CORPUSCULAR HGB CONC 34 g/dl (31.0-36.0); MEAN CORPUSCULAR VOLUME 94 fL (80-96); MONOCYTES # (AUTO) 0.7 /CMM (0.1-1.30); MONOCYTES % (AUTO) 6.5 % (2.0-12.0); NEUTROPHILS # (AUTO) 9.7 /CMM (1.8-8.9); NEUTROPHILS % (AUTO) 85.6 % (43.0-81.0); PLATELET COUNT (AUTO) 189 /CMM (150-450); RDW COEFFICIENT OF VARIATION 14.1 (11.5-15.0); WHITE BLOOD COUNT (AUTO) 11.4 K/uL (4.3-11.0)
[2017-06-25] MEDS: IV D5W 1,000 ML IV PRN (05:55)
[2017-06-25 06:09] LABS: CALCIUM, SERUM 8.4 mg/dL (8.5-10.1); CARBON DIOXIDE 27 mmol/L (21-32); CHLORIDE 116 mmol/L (98-107); CREATININE 1.7 mg/dL (0.6-1.3); GLUCOSE 146 mg/dL (74-106); MAGNESIUM 2.3 mg/dL (1.8-2.4); PHOSPHORUS 3.7 mg/dL (2.5-4.9); POTASSIUM 3.8 mmol/L (3.5-5.1); SODIUM SERUM 149 mmol/L (136-145)
[2017-06-25 06:11] LABS: UREA NITROGEN, BLOOD 95 mg/dL (7-18)
--- NOTE | 2017-06-25 07:21 | NUR ---
ICU/RN: INITIAL NOTES,AM RECEIVED REPORT FROM NIGHT NURSE. PT AAOX1, OPENS EYES, TRACKS, DOES NOT FOLLOW COMMANDS. PT INTUBATED, ETT 7.5, 24 CM AT THE LIP. ON VENT SETTINGS ORDERED BY MD, NO ACUTE DISTRESS NOTED AT THIS TIME. RIGHT UPPER ARM PICC LINE PATENT INTACT, NO S/S OF INFECTION OR INFILTRATION NOTED. OG TUBE IN PLACE, FEEDING INFUSING, WILL ASSESS RESIDUAL. PT ON TELE, V PACING. SAFETY MEASURES TAKEN, BED IN LOW POSITION, SIDE RAILS UP, CALL LIGHT WITHIN REACH. WILL CONTINUE CARE.
[2017-06-25] MEDS: CARVEDILOL 12.5 MG TABLET PO SCH ×2 (08:35→20:20)
[2017-06-25] MEDS: ATORVASTATIN 40 MG TABLET PO SCH (08:35)
[2017-06-25] MEDS: ASPIRIN 81 MG TAB.CHEW PO SCH (08:35)
[2017-06-25] MEDS: PROSOURCE / PROSTAT (PYXIS) 30 ML UDC GT SCH ×2 (08:36→17:43)
[2017-06-25] MEDS: LEVOFLOXACIN 750 MG /D5W 150ML 750 MG in PREMIX 1 EA IV SCH (11:52)
[2017-06-25] MEDS: RIVAROXABAN 15 MG TABLET PO SCH (17:46)
--- NOTE | 2017-06-25 18:00 | NUR ---
RT NOTE: PATIENT RECEIVED ORALLY INTUBATED WITH 7.5 ETT SECURED AT 23 CM MID LIP ON PB 840 VENT. ALARMS VERIFIED AND AUDIBLE. SUCTIONED AND LAVAGED MODERATE-LARGE AMOUNT OF THICK WOO SECRETIONS. VENT PLUGGED INTO RED OUTLET. AMBU BAG AT [facility].
--- NOTE | 2017-06-25 19:58 | NUR ---
RN INITIAL NOTE RECEIVED PT IN NO ACUTE DISTRESS IN BED. PT IS A/O X 1 AND TRACKS WHEN PT'S NAME IS CALLED. PT IS ON MECHANICAL VENT VIA ETT. ETT IS 7.5/ 24 AT THE LIP. PT TOLERATING VENT SETTING WELL WITH O2 SAT @ 100%. PT HAS OG TUBE THAT IS CLEAN DRY INTACT AND PATENT WITH FREE WATER FLUSH. PT IS ON GLYTROL FEEDING @ 45ML/HR. PT TOLERATING FEEDING WITH 0 RESIDUAL. PT IS ON TELE WITH 100% V PACING ON THE MONITOR. PT HAS PACEMAKER ON LEFT UPPER CHEST WALL. PT HAS F/C THAT IS CLEAN DRY INTACT AND PATENT WITH YELLOW URINE DRAINING. PT HAS JERAMY PICC THAT IS CLEAN DRY INTACT AND PATENT WITH D5W @ 50ML/HR. BED IN LOW LOCK POSITION WITH RAILS UP X 2. CALL LIGHT WITHIN REACH AND ALL SAFETY MEASURES ENSURED AND CARRIED OUT. WILL CONTINUE TO MONITOR PT.
[2017-06-26] VITALS (26 sets, daily range): BP systolic 96–146; BP diastolic 32–99
[2017-06-26] MEDS: BLOOD SUGAR DIAGNOSTIC 1 EACH STRIP IN SCH ×3 (00:23→11:38)
[2017-06-26] MEDS: IPRATROPIUM NEB FS 0.5 MG/2.5 ML AMPUL.NEB NEB SCH ×3 (01:22→14:28)
[2017-06-26] MEDS: IV D5W 1,000 ML IV PRN (03:51)
--- NOTE | 2017-06-26 04:53 | NUR ---
PATIENT RECEIVED ORALLY INTUBATED ON VENT. ALARMS VERIFIED AND AUDIBLE. SUCTIONED AND LAVAGED SMALL-MODERATE AMOUNT OF THIN WOO/BLOOD TINGED SECRETIONS. VENT PLUGGED INTO RED OUTLET. AMBU BAG AT HOB. Addendum: 06/26/17 at 0455 by MARCEL PANG RT Amended: Links added.
[2017-06-26 05:18] LABS: CALCIUM, SERUM 7.8 mg/dL (8.5-10.1); CARBON DIOXIDE 22 mmol/L (21-32); CHLORIDE 112 mmol/L (98-107); CREATININE 1.6 mg/dL (0.6-1.3); GLUCOSE 160 mg/dL (74-106); MAGNESIUM 2.1 mg/dL (1.8-2.4); POTASSIUM 3.6 mmol/L (3.5-5.1); SODIUM SERUM 145 mmol/L (136-145)
[2017-06-26 05:20] LABS: UREA NITROGEN, BLOOD 80 mg/dL (7-18)
[2017-06-26 06:02] LABS: EOSINOPHILS # (AUTO) 0.1 /CMM (0.0-0.7); EOSINOPHILS % (AUTO) 0.9 % (0.0-6.0); HEMATOCRIT 25 % (39-51); HEMOGLOBIN 8.4 g/dL (13.5-17.5); LYMPHOCYTES # (AUTO) 0.9 /CMM (0.8-4.8); LYMPHOCYTES % (AUTO) 6.5 % (20.0-44.0); MEAN CORPUSCULAR HEMOGLOBIN 32 PG (26.0-33.0); MEAN CORPUSCULAR HGB CONC 34 g/dl (31.0-36.0); MEAN CORPUSCULAR VOLUME 94 fL (80-96); MONOCYTES # (AUTO) 0.7 /CMM (0.1-1.30); NEUTROPHILS # (AUTO) 11.5 /CMM (1.8-8.9); NEUTROPHILS % (AUTO) 87.6 % (43.0-81.0); PLATELET COUNT (AUTO) 185 /CMM (150-450); RDW COEFFICIENT OF VARIATION 13.7 (11.5-15.0); WHITE BLOOD COUNT (AUTO) 13.1 K/uL (4.3-11.0)
[2017-06-26] MEDS: INSULIN REGULAR, HUMAN 100 UNIT/ML 3 ML VIAL SQ PRN ×2 (06:16→11:41)
--- NOTE | 2017-06-26 06:56 | NUR ---
RN NOTE PT REMAINS IN NO ACUTE DISTRESS IN BED. PT DID NOT HAVE ANY SIGNIFICANT CHANGE IN CONDITION. ALL NEEDS MET, ALL ORDERS CARRIED OUT. WILL ENDORSE CARE TO AM RN FOR CONTINUITY OF CARE.
--- NOTE | 2017-06-26 07:30 | NUR ---
RN NOTE PT SLEEPY, OPENS EYES TO NAME, ON MECH VENT, ETT 7.5, 24 AT LIP, CALM, VS STABLE, IV LINE INTACT, G TUBE RUNNING, UPON ASPIRATION OF STOMACH CONTENT BLOOD NOTED, RED COLOR, RESIDUAL 30 ML. GOOD CATHETER IN PLACE, URINE OUTPUT ADEQUATE. SAFETY MEASURES IMPLEMENTED, WILL MONITOR PT.
[2017-06-26] MEDS: ASPIRIN 81 MG TAB.CHEW PO SCH ×2 (08:56→09:00)
[2017-06-26] MEDS: ATORVASTATIN 40 MG TABLET PO SCH (08:56)
[2017-06-26] MEDS: PROSOURCE / PROSTAT (PYXIS) 30 ML UDC GT SCH (08:56)
[2017-06-26] MEDS: CARVEDILOL 12.5 MG TABLET PO SCH (08:59)
--- NOTE | 2017-06-26 09:00 | NUR ---
RN NOTE ASPIRIN SCHEDULED HELD DUE TO BLOODY STOMACH CONTENT. WILL FOLLOW UP WITH MD.
--- NOTE | 2017-06-26 09:28 | NUR ---
RT NOTE AT THIS TIME PLACE PT ON CPAP MODE PER MD WEANING ORDERS, WILL MONITOR CLOSELY. Addendum: 06/26/17 at 0929 by ADELSO CROWELL RT Amended: Links added.
[2017-06-26 11:57] LABS: ABG BASE EXCESS -2.4 mmol/L; ABG OXYGEN SATURATION 97.4 % (92.0-98.5); ABG PCO2 28.1 mmHg (35.0-45.0); ABG PO2 126.1 mmHg (75.0-100.0); AaDO2 126.8 mmHg; COHb 0.2 % (0.5-1.5); MetHb 0.6 % (0.0-1.5); O2Hb 96.6 % (94.0-97.0); PEEP,BG 5 cm H2O; SITE, ABG Left Radial
--- NOTE | 2017-06-26 14:00 | NUR ---
Rt NOTE PT EXTUBATED AT THIS TIME, BREATHING FAST AND WNL DEPTH, SATURATION 99%, RR 38. HR 101. NC ON 3 L/MIN, PER DR BO. WILL MONITOR CLOSELY
--- NOTE | 2017-06-26 14:00 | NUR ---
RN NOTE PT EXTUBATED BY RT BREATHING FAST AND WNL DEPTH, SATURATION 99%, RR 38. HR 101. NC ON 3 L/MIN, PER DR BO TO GIVE ATIVAN AND MORPHINE PRN FOR COMFORT POST EXTUBATION.
[2017-06-26] MEDS: MORPHINE SULFATE INJ 4 MG/ML DISP.SYRIN IV PRN ×2 (15:16→16:38)
[2017-06-26] MEDS: LORAZEPAM INJ 2 MG/ML VIAL IV PRN ×3 (16:07→21:07)
[2017-06-26] MEDS ORDERED: MORPHINE SULFATE PF DRIP 250 MG in IV D5W 240 ML IV PRN (16:30)
--- NOTE | 2017-06-26 18:00 | NUR ---
RN NOTE PT BREATHING LABORED, PUT ON MORPHINE DRIP, FOR COMFORT MEASURES PER DR BO AND FRANKIE.
--- NOTE | 2017-06-26 19:00 | NUR ---
RN NOTE TRANSFERRED PT TO 208-1, REPORT GIVEN TO CORY HOLT FOR DAVID.
--- NOTE | 2017-06-26 19:20 | NUR ---
RN INITIAL NOTES: RECEIVED BED SIDE REPORT FROM CORY GLASS PT TRANSFERRED FROM ICU, PT ON COMFORT CARE, PT SOMNOLENT NON VERBAL ON 3L VIA NC, WITH LABORED BREATHING AND TACHYPNEIC AT 25BPM. NO ROUTINE VS PER MD. ENTIRE FAMILY AT BED SIDE. PT RECEIVED WITH GOOD CATHETER IN PLACED DRAINING INTO YELLOW COLORED URINE. PT ON MORPHINE RESEARCH DEVELOPMENT DIRECTOR DRIP, CURRENT RATE OF 6MG/HR. PER REPORT, RESEARCH DEVELOPMENT DIRECTOR WAS STARTED AT 1800 AT 4MG/HR, THEN AT 1830 IT WAS INCREASED TO 6+MG/HR FOR PT'S COMFORT. PRN ATIVAN WAS ALSO GIVEN BY THE PREVIOUS RN. PT HAS JERAMY PICC LINE WITH TRIPLE LUMEN, PATENT AND FLUSHING WELL WITH GOOD BLOOD RETURN. BLE OFFLOADED. SAFETY PRECAUTIONS FOR FALL INITIATED CALL LIGHT IN REACH, WILL CONTINUE TO MONITOR
--- NOTE | 2017-06-26 20:17 | NUR ---
RN NOTES: CONTACTED EPIC OFFSHORE WIND OPERATIONS MANAGER, REGARDING PT NOTED TO HAVE INCREASE SECRETIONS, RECEIVED CALL BACK FROM OFFSHORE WIND OPERATIONS MANAGER MD, WITH ORDERS FOR SCOPOLAMINE PATCH TRANSDERMAL
--- NOTE | 2017-06-26 20:25 | NUR ---
RN NOTES: NOTED PT WITH FACIAL GRIMACE AND LABORED BREATHING, APPEARS TO BE IN PAIN, ALSO PER FAMILY WANTING TO INCREASE DOSE OF PAIN MEDICATION, MORPHINE DRIP INCREASE TO 7MG/HR TO HELP PATIENT AND BECAME COMFORTABLE
[2017-06-26] MEDS ORDERED: SCOPOLAMINE HBR 1 EA PATCH.TD72 TD SCH (20:30)
--- NOTE | 2017-06-26 21:07 | NUR ---
PRN ATIVAN: PRN ATIVAN ADMINISTERED PER FAMILY REQUEST FOR PT'S AGITATION AND COMFORT, ATIVAN 1MG IVP ADMINISTERED ORDERED.
--- NOTE | 2017-06-26 21:20 | NUR ---
RN NOTES: NOTED CHANGES IN PT'S BREATHING, FROM TACHYPNEIC, PT NOW HAVING SHALLOW RESPIRATION WITH PERIODIC EPISODE OF APNEA. RR 15
--- NOTE | 2017-06-26 21:30 | NUR ---
RN NOTES: PATIENT FOUND TO BE NOT BREATHING, NO PULSE NOTED. CHECKED WITH ANOTHER RN, PUPILS DILATED, UNRESPONSIVE,BODY STILL WARM BUT COLOR IS DUSKY. CHECKED BODY FOR ANY SIGNS OF LIFE. PT . PRONOUNCED WITH ANOTHER ANOTHER.
--- NOTE | 2017-06-26 21:35 | NUR ---
RN NOTES: STOPPED PT'S IVF AND MORPHINE DORMITORY SUPERVISOR. FAMILY AT BED SIDE, COBOL ENGINEER FROM 3W CAME TO HELP AND ASSESS THE SITUATION. CONTACTED RN SWEATBAND MAKER TOO.
--- NOTE | 2017-06-26 21:48 | NUR ---
RN NOTES: RN COMPUTER SYSTEMS ARCHITECT TALKED TO FAMILY MEMBERS OF THE PATIENT. FAMILY HAS OWN SELECTED MORTUARY, WHICH IS [facility]. FAMILY PROVIDED PAPERWORKS FOR MORTUARY
--- NOTE | 2017-06-26 22:05 | NUR ---
RN NOTES: NOTIFIED ATTENDING MD REGARDING PATIENT'S PASSING, JOON CHANDRA.
--- NOTE | 2017-06-26 22:06 | NUR ---
RN NOTES: CALLED [facility] AT [phone], TALKED TO REYNA. CASE NUMBER WAS PROVIDED R [phone]. 2215 RN NOTES: CONTACTED ADMITTING REGARDING PT'S PASSING, TALKED TO PHILL Guerra 2240 CONTACTED [facility], TALKED TO CASE TEMPLATE CUTTER AND STATED THEY WILL FAX AN AUTHORIZATION FOR RELEASE OF REMAINS, JAMEEL CONTRERAS PT'S DAUGHTER, WITH RN FOR VERIFICATION OF INFORMATION AND ALSO TALKED TO THE TEMPLATE CUTTER AT HAND. AUTHORIZATION FORM WAS FILLED UP BY MARNIE JORGENSEN'S DAUGHTER AND FORM WAS FAXED BACK TO [facility] AT [phone]. 2300 RECEIVED CALL BACK FROM KERRY FROM [facility], VERIFYING IF MARNIE JORGENSEN'S DAUGHTER IS A NEXT OF KIN AND WAS ON PAYSHEET. ALSO STATED THEY WILL SEND A DISPATCH AND ESTIMATED TIME OF CHANGE MANAGEMENT LEAD WILL BE WITHIN 2HRS. INFORMED FAMILY REGARDING CONVERSATION. FAMILY WILLING TO WAIT. 2305 INFORMED RN SUP ABOUT ESTIMATED TIME OF CHANGE MANAGEMENT LEAD AND PER RN SUP OKAY FOR THE BODY TO STAY IN THE ROOM. 2315 POST MORTEM CARE PROVIDED TO THE PT WITH HELP OF ANOTHER RN, PROPER ID TAGS AND PATIENT'S STICKER/NAME BAND ATTACH. PT HAS NO BELONGINGS. IDENTIFICATION BAND PLACED ON TOE AND BAG, AND ARMBAND WAS KEPT IN PLACED. IT WAS CUT FROM ICU SO RN DECIDED TO PUT IT BACK ON PT'S ARM AND TAPE IT PROPERLY. GOOD CATHETER WAS REMOVED, AND PICC LINE WAS REMOVED TOO. PRESSURED DRESSING APPLIED. PLACED ON BODY BAG AND MADE READY FOR POSSIBLE CHANGE MANAGEMENT LEAD.
--- NOTE | 2017-06-27 00:05 | NUR ---
RN NOTES: FAMILY DECIDED TO LEAVE AND STATED THEY WILL NOT WAIT FOR THE MORTUARY TO COME AND ESL PROFESSOR THE BODY.
--- NOTE | 2017-06-27 00:40 | NUR ---
RN NOTES: MORTUARY CAME TO [facility] THE BODY. PROPER IDENTIFICATION VERIFIED. ALSO COPY OF RECORD OF /AUTHORIZATION FOR RELEASE OF REMAINS WAS GIVEN TO MORTUARY OIL PAINT SHADER ERIKA SIERRA.
[2017-06-27] MEDS ORDERED: KEY,NONCONTROL,TO KEEP IN PYXI 1 EA MC ONE (01:18)
--- NOTE | 2017-06-27 01:33 | NUR ---
RN NOTES: PT WAS ON MORPHINE MAINTENANCE CONSTRUCTION HELPER DRIP, MORPHINE 250MG IN D5W 250ML, WASTED MEDICATION WITH ANOTHER CORY NUNEZ, TOTAL OF VOLUME INFUSED FOR MY SHIFT FROM TIME I RECEIVED THE PATIENT UNTIL 2134 (TIME I STOPPED MEDICATION SINCE PT ) WAS 13ML. 220ML OF MORPHINE WAS DISRCARDED/WASTED WITH ANOTHER CORY NUNEZ. Addendum: 06/27/17 at 0243 by GRUPO ALLEN RN CORRECTION OF ENTRY: DISREGARD ABOVE DOCUMENTATION: PT ON MORPHINE MAINTENANCE CONSTRUCTION HELPER DRIP, MORPHINE 250MG IN D5W 250ML. MAINTENANCE CONSTRUCTION HELPER STARTED IN ICU AT 4MG/HR, THEN INCREASE BY DAY RN TO 6MG/HR PRIOR TO BRINGING PT TO MS 2 UNIT. AT 2024, I TITRATED THE MEDICATION PER FAMILY WISHES AND PT COMFORT TO 7MG/HR. TOTAL OF VOLUME DISCARDED WAS 230MG, WITNESSED BY ANOTHER CORY NUNEZ AND CORY LINARES.
--- NOTE | 2017-06-27 01:35 | NUR ---
RN NOTES: PT ON MORPHINE BRIGADIER DRIP, MORPHINE 250MG IN D5W 250ML. BRIGADIER STARTED IN ICU AT 4MG/HR, THEN INCREASE BY DAY RN TO 6MG/HR PRIOR TO BRINGING PT TO MS 2 UNIT. AT 2024, I TITRATED THE MEDICATION PER FAMILY WISHES AND PT COMFORT TO 7MG/HR. AT 2134 I STOPPED BRIGADIER BECAUSE PT . MORPHINE BAG, TOTAL OF VOLUME DISCARDED WAS 230MG, WITNESSED BY ANOTHER RN ENRIQUE AND CORY LINARES.
== END 2017-06-26 21:30 | disposition expired | DRG 207 ==
LOC: ER 05:11 → ICU 10:23 → MEDSG2 06-26 18:58
PROVIDERS: ADMIT Nurse Practitioner Acute Care; ATTEND Family Medicine
PROC: 5A1955Z Respiratory Ventilation, Greater than 96 Consecutive Hours (ICD-10-PCS; principal; 2017-06-10)
PROC: 0BH18EZ Insertion of Endotracheal Airway into Trachea, Via Natural or Artificial Opening Endoscopic (ICD-10-PCS; 2017-06-10)
PROC: 02HV33Z Insertion of Infusion Device into Superior Vena Cava, Percutaneous Approach (ICD-10-PCS; 2017-06-15)
PROC: B548ZZA Ultrasonography of Superior Vena Cava, Guidance (ICD-10-PCS; 2017-06-15)
DX: J96.01 Acute respiratory failure with hypoxia (principal); N17.0 Acute kidney failure with tubular necrosis; Z66 Do not resuscitate; Z51.5 Encounter for palliative care; I50.23 Acute on chronic systolic (congestive) heart failure; J84.9 Interstitial pulmonary disease, unspecified; G92 Toxic encephalopathy; E87.0 Hyperosmolality and hypernatremia; I95.9 Hypotension, unspecified; E11.22 Type 2 diabetes mellitus with diabetic chronic kidney disease; D68.59 Other primary thrombophilia; E11.65 Type 2 diabetes mellitus with hyperglycemia; I42.9 Cardiomyopathy, unspecified; I13.0 Hypertensive heart and chronic kidney disease with heart failure and stage 1 through stage 4 chronic kidney disease, or unspecified chronic kidney disease; E87.2 Acidosis; I48.92 Unspecified atrial flutter; E66.01 Morbid (severe) obesity due to excess calories; J44.9 Chronic obstructive pulmonary disease, unspecified; I25.10 Atherosclerotic heart disease of native coronary artery without angina pectoris; Z95.1 Presence of aortocoronary bypass graft; Z95.0 Presence of cardiac pacemaker; Z87.11 Personal history of peptic ulcer disease; Z82.49 Family history of ischemic heart disease and other diseases of the circulatory system; Z79.899 Other long term (current) drug therapy; Z79.82 Long term (current) use of aspirin; Z79.01 Long term (current) use of anticoagulants; J96.02 Acute respiratory failure with hypercapnia; K21.9 Gastro-esophageal reflux disease without esophagitis; J45.909 Unspecified asthma, uncomplicated; D63.8 Anemia in other chronic diseases classified elsewhere; N18.9 Chronic kidney disease, unspecified; M54.5 Low back pain; E78.5 Hyperlipidemia, unspecified; G47.33 Obstructive sleep apnea (adult) (pediatric); I70.0 Atherosclerosis of aorta; Z68.26 Body mass index [BMI] 26.0-26.9, adult; F17.200 Nicotine dependence, unspecified, uncomplicated; T38.0X5A Adverse effect of glucocorticoids and synthetic analogues, initial encounter; Y92.009 Unspecified place in unspecified non-institutional (private) residence as the place of occurrence of the external cause; L30.4 Erythema intertrigo; L98.9 Disorder of the skin and subcutaneous tissue, unspecified; B96.89 Other specified bacterial agents as the cause of diseases classified elsewhere
CPT/HCPCS: 31720; 36415; 36600; 70450-TC; 71045-TC; 80048-TC; 80053-TC; 80076-TC; 81000-TC; 82140-TC; 82803-TC; 82962-TC; 83735-TC; 83880; 84100-TC; 84478-TC; 84484-TC; 85025-TC; 87040-TC; 87070-TC; 87081-TC; 87086-TC; 87186-TC; 87400; 94002-TC; 94003-TC; 94760-TC; 94762-TC; 94799-TC; A4216; A4606; A6402; C1751; J1815; J1940; J1956; J2060; J2250; J2270; J2274; J2920; J2930; J3010; J3490; J7030; J7040; J7050; J7060; J7070; Z7610